=== PATIENT | female | born 1990 | race Caucasian/White ===

== ENCOUNTER 2017-08-21 17:33 | Observation (INO) | payer OTHER ==
[2017-08-21] MEDS: Lactated Ringers 1,000 ML IV SCH ×2 (18:45→22:47)
[2017-08-21] MEDS ORDERED: Ampicillin 2 GM in Sodium Chloride 0.9% 100 ML IV ONE (22:00)
--- NOTE | 2017-08-21 22:08 | PCM.LDHP ---
L&D History of Present Illness - General Date of Service: 08/21/17 Admit Problem/Dx: Admission Diagnosis/Problem Admission Diagnosis/Problem Source of Information: Patient History Limitations: Reports: No Limitations - History of Present Illness Introduction:: 27-year-old patient of Dr. Ahmet Mack's [facility] 09/19/17 at 35 weeks and 6 days (36 weeks 0 days tomorrow in 2 hours) action presented to labor and delivery complaining of contractions. Nonstress test is reactive group B strep was collected and assures negative patient is [place] every 3-5 minutes after 1000 mL of hydration over 3 hours including 500 mL for the first hour and 2 50/h thereafter. Will begin patient on group B strep prophylaxis as a precaution awaiting the return of the group B strep collection. Blood type O- positive antibody screen negative on 02/01/17 hemoglobin hematocrit 13.1 and 39% platelets 232,000, rubella titer immune, hepatitis B surface antigen nonreactive , HIV normal, on 06/20/17 hemoglobin 11.4 platelets 232,000, 1 hour OB glucose screen 102 mg/dL antibody screen negative Patient has continued to contract irregularly 3-5 minutes apart even with hydration. Will plan morphine 10 mg with Vistaril 50 mg IM and Procardia 10 mg by mouth. Will also treat with Augmentin until results of group B strep collection returned. Patient needs to stay overnight. Improves with: Reports: None Worsens with: Reports: None Associated Symptoms: Reports: N - Related Data Allergies/Adverse Reactions: Allergies Allergy/AdvReac Type Severity Reaction Status Date / Time Latex, Natural Rubber Allergy Anaphylactic Verified 03/14/16 20:55 Shock Home Medications: Home Meds Sertraline [Zoloft] 25 mg PO BEDTIME 11/24/13 [History] Albuterol [Proventil HFA] 6.7 gm INH Q6H PRN #1 inhaler 03/14/16 [Rx] Past Medical History Respiratory History: Reports: Asthma : 3 Para: 1 (1011) - Past Surgical History Female Surgical History: Reports: Other (See Below) Social & Family History - Tobacco Use Smoking Status *Q: Never Smoker Years of Tobacco use: 10 Packs/Tins Daily: 0.1 Second Hand Smoke Exposure: No - Alcohol Use Days Per Week of Alcohol Use: 0 - Recreational Drug Use Recreational Drug Use: No H&P Review of Systems - Review of Systems: Review Of Systems: See Below General: Reports: No Symptoms HEENT: Reports: No Symptoms Pulmonary: Reports: No Symptoms Cardiovascular: Reports: No Symptoms Gastrointestinal: Reports: No Symptoms Genitourinary: Reports: No Symptoms Musculoskeletal: Reports: No Symptoms Skin: Reports: No Symptoms Psychiatric: Reports: No Symptoms Neurological: Reports: No Symptoms Hematologic/Lymphatic: Reports: No Symptoms Immunologic: Reports: No Symptoms L&D Exam - Exam Exam: See Below - Vital Signs Vital Signs: Last Vital Signs Temp 97.8 F 08/21/17 17:47 Pulse 77 08/21/17 19:33 Resp 16 08/21/17 17:47 BP 100/59 L 08/21/17 17:47 Pulse Ox 100 08/21/17 17:49 Weight: 161 lb 14.4 oz - OB Specific Fundal Height In cm: 35 Contraction Duration (sec): 60 Contraction Frequency (min): 3-5 Contraction Intensity: Mild to Moderate Movement: Active Heart Tones: Present Heart Tones per Min: 126 Heart Rate (FHR) Variability: Moderate (6-25 bmp) (Nonstress test is reactive) Presentation: Vertex - Exam General: Alert, Oriented HEENT: Conjunctiva Clear, Mucosa Moist & [place], PERRLA Neck: Supple, Trachea Midline Lungs: Clear to Auscultation, Normal Respiratory Effort Cardiovascular: Regular Rate, Regular Rhythm GI/Abdominal Exam: Normal Bowel Sounds, Soft, Non-Tender, No Organomegaly, No Distention, No Abnormal Bruit, No Mass, Pelvis Stable Genitourinary: Normal external exam, Normal bimanual exam, Normal speculum exam Back Exam: Normal Inspection, Full Range of Motion Extremities: Normal Inspection, Normal Range of Motion, Non-Tender, No Pedal Edema, Normal Capillary Refill Skin: Warm, Dry, Intact Neurological: Reflexes Equal Bilateral Psychiatric: Alert, Normal Affect, Normal Mood - Patient Data Lab Results Last 24 hrs: Laboratory Results - last 24 hr 08/21/17 08/21/17 Range/Units 17:55 19:20 Urine Color Light yellow (Yellow) Urine Appearance Clear (Clear) Urine pH 7.0 (5.0-8.0) Ur Specific [place] 1.010 (1.005-1.030) Urine Protein Negative (Negative) Urine Glucose (UA) Negative (Negative) Urine Ketones Negative (Negative) Urine Occult Blood Negative (Negative) Urine Nitrite Negative (Negative) Urine Bilirubin Negative (Negative) Urine Urobilinogen 0.2 (0.2-1.0) Ur Leukocyte Esterase Negative (Negative) Urine RBC 0-5 (0-5) /hpf Urine WBC 0-5 (0-5) /hpf Ur Epithelial Cells 0-5 (0-5) /hpf Urine Bacteria Not seen (FEW) /hpf Urine Mucus Not seen (FEW) /hpf Membrane Rupture Negative - Problem List (1) 36 weeks gestation of SNOMED Code(s): 24248672 ICD Code: Z3A.36 - 36 WEEKS GESTATION OF Status: Acute Current Visit: Yes (2) Threatened labor, antepartum SNOMED Code(s): 834129217 ICD Code: O47.00 - FALSE LABOR BEFORE 37 COMPLETED WEEKS OF GEST, UNSP TRI Status: Acute Current Visit: Yes Problem List Initiated/Reviewed/Updated: No Orders Last 24hrs: Active Orders 24 hr Category Date Time Status CULTURE URINE [RM] Routine Lab 08/21/17 19:20 Received GROUP B STREP BY PCR [MOLEC] Stat Lab 08/21/17 17:48 Ordered Lactated Ringers [Ringers, Lactated] 1,000 ml Med 08/21/17 18:30 Active IV ASDIRECTED Medication Orders Lactated Ringer's (Ringers, Lactated) 1,000 mls @ 500 mls/hr IV ASDIRECTED [facility] Last Infusion: 08/21/17 19:49 Dose: 250 mls/hr Admin: 08/21/17 18:45 Dose: 500 mls/hr Assessment/Plan Comment:: Patient will be Overnight given IV hydration and medications to see if contractions will subside. Urinalysis negative Amnisure negative
[2017-08-21] MEDS ORDERED: Albuterol 6.7 GM Inhaler INH PRN (22:12)
[2017-08-21] MEDS ORDERED: Ondansetron 4 MG/2 ML SDV IV PRN (22:14)
[2017-08-21] MEDS ORDERED: Acetaminophen 325 MG Tab PO PRN (22:14)
[2017-08-21] MEDS ORDERED: hydrOXYzine HCl 25 MG/ML SDV IM ONE (22:14)
[2017-08-21] MEDS ORDERED: Morphine 10 MG/ML Syringe IM ONE (22:14)
[2017-08-21] MEDS ORDERED: Docusate Sodium 100 MG Cap PO PRN (22:14)
[2017-08-21] MEDS: NIFEdipine 10 MG Cap PO SCH (22:53)
[2017-08-22] MEDS: Ampicillin 1 GM in Sodium Chloride 0.9% 100 ML IV SCH ×2 (02:37→06:04)
[2017-08-22] MEDS: Lactated Ringers 1,000 ML IV SCH ×2 (04:05→04:06)
[2017-08-22 04:08] VITALS: BP 94/55
[2017-08-22] MEDS: NIFEdipine 10 MG Cap PO SCH (04:08)
--- NOTE | 2017-08-22 06:43 | PCM.DCSUM1 ---
Discharge Summary - Hospital Course Free Text/Narrative:: Contractions subsided patient will be dismissed to see Dr. Ahmet Mack this week possibly Monday or . HPI Initial Comments: Contractions subsided patient will be dismissed to see Dr. Ahmet Mack this week possibly Monday or . Brief History: Contractions subsided patient will be dismissed to see Dr. Ahmet Mack this week possibly Monday or . - Discharge Data Discharge Date: 08/22/17 Discharge Disposition: Home, Self-Care 01 Condition: Good - Discharge Diagnosis/Problem(s) (1) 36 weeks gestation of SNOMED Code(s): 00742782 ICD Code: Z3A.36 - 36 WEEKS GESTATION OF Status: Acute Current Visit: Yes (2) Threatened labor, antepartum SNOMED Code(s): 541985707 ICD Code: O47.00 - FALSE LABOR BEFORE 37 COMPLETED WEEKS OF GEST, UNSP TRI Status: Acute Current Visit: Yes - Patient Summary/Data Complications: None Consults: None Hospital Course: Uneventful - Patient Instructions Diet: Regular Diet as Tolerated Driving: May Drive Today Showering/Bathing: May Shower, No Tub Bathing/Swimming Notify Provider of: Fever, Increased Pain, Swelling and Redness, Drainage, Nausea and/or Vomiting Other/Special Instructions: Contractions subsided - Discharge Plan Home Medications: Home Meds Sertraline [Zoloft] 25 mg PO BEDTIME 11/24/13 [History] Albuterol [Proventil HFA] 6.7 gm INH Q6H PRN #1 inhaler 03/14/16 [Rx] Referrals: Ynes Encinas MD [Primary Care Provider] - (This week Monday if possible.) - Discharge Summary/Plan Comment DC Time >30 min.: No - Patient Data Vitals - Most Recent: Last Vital Signs Temp 97.8 F 08/21/17 17:47 Pulse 77 08/21/17 19:33 Resp 16 08/21/17 17:47 BP 94/55 L 08/22/17 04:08 Pulse Ox 100 08/21/17 17:49 Weight - Most Recent: 161 lb 14.4 oz Lab Results - Last 24 hrs: Laboratory Results - last 24 hr 08/21/17 08/21/17 08/21/17 Range/Units 17:55 19:20 21:30 WBC 14.41 H (3.98-10.04) K/mm3 RBC 4.07 (3.98-5.22) M/mm3 Hgb 11.2 (11.2-15.7) gm/L Hct 33.6 L (34.1-44.9) % MCV 82.6 (79.4-94.8) fl MCH 27.5 (25.6-32.2) pg MCHC 33.3 (32.2-35.5) g/dl RDW Std Deviation 38.6 (36.4-46.3) fL Plt Count 185 (182-369) K/mm3 MPV 11.2 (9.4-12.3) fl Neut % (Auto) 69.5 (34.0-71.1) % Lymph % (Auto) 19.8 (19.3-51.7) % [place] % (Auto) 8.3 (4.7-12.5) % Eos % (Auto) 1.3 (0.7-5.8) Baso % (Auto) 0.1 (0.1-1.2) % Neut # (Auto) 10.01 H (1.56-6.13) K/mm3 Lymph # (Auto) 2.86 (1.18-3.74) K/mm3 [place] # (Auto) 1.19 H (0.24-0.36) K/mm3 Eos # (Auto) 0.19 (0.04-0.36) K/mm3 Baso # (Auto) 0.02 (0.01-0.08) K/mm3 Manual Slide Review Normal smear Urine Color Light yellow (Yellow) Urine Appearance Clear (Clear) Urine pH 7.0 (5.0-8.0) Ur Specific [place] 1.010 (1.005-1.030) Urine Protein Negative (Negative) Urine Glucose (UA) Negative (Negative) Urine Ketones Negative (Negative) Urine Occult Blood Negative (Negative) Urine Nitrite Negative (Negative) Urine Bilirubin Negative (Negative) Urine Urobilinogen 0.2 (0.2-1.0) Ur Leukocyte Esterase Negative (Negative) Urine RBC 0-5 (0-5) /hpf Urine WBC 0-5 (0-5) /hpf Ur Epithelial Cells 0-5 (0-5) /hpf Urine Bacteria Not seen (FEW) /hpf Urine Mucus Not seen (FEW) /hpf Membrane Rupture Negative Blood Type Gel Antibody Screen 08/21/17 Range/Units 21:30 WBC (3.98-10.04) K/mm3 RBC (3.98-5.22) M/mm3 Hgb (11.2-15.7) gm/L Hct (34.1-44.9) % MCV (79.4-94.8) fl MCH (25.6-32.2) pg MCHC (32.2-35.5) g/dl RDW Std Deviation (36.4-46.3) fL Plt Count (182-369) K/mm3 MPV (9.4-12.3) fl Neut % (Auto) (34.0-71.1) % Lymph % (Auto) (19.3-51.7) % [place] % (Auto) (4.7-12.5) % Eos % (Auto) (0.7-5.8) Baso % (Auto) (0.1-1.2) % Neut # (Auto) (1.56-6.13) K/mm3 Lymph # (Auto) (1.18-3.74) K/mm3 [place] # (Auto) (0.24-0.36) K/mm3 Eos # (Auto) (0.04-0.36) K/mm3 Baso # (Auto) (0.01-0.08) K/mm3 Manual Slide Review Urine Color (Yellow) Urine Appearance (Clear) Urine pH (5.0-8.0) Ur Specific [place] (1.005-1.030) Urine Protein (Negative) Urine Glucose (UA) (Negative) Urine Ketones (Negative) Urine Occult Blood (Negative) Urine Nitrite (Negative) Urine Bilirubin (Negative) Urine Urobilinogen (0.2-1.0) Ur Leukocyte Esterase (Negative) Urine RBC (0-5) /hpf Urine WBC (0-5) /hpf Ur Epithelial Cells (0-5) /hpf Urine Bacteria (FEW) /hpf Urine Mucus (FEW) /hpf Membrane Rupture Blood Type O POSITIVE Gel Antibody Screen Negative Med Orders - Current: Current Medications Acetaminophen (Tylenol) 650 mg PO Q4H PRN PRN Reason: mild pain and fever Albuterol (Proventil Hfa) 0 gm INH Q6H PRN PRN Reason: Dyspnea Docusate Sodium (Colace) 100 mg PO Q12H PRN PRN Reason: Constipation Lactated Ringer's (Ringers, Lactated) 1,000 mls @ 125 mls/hr IV ASDIRECTED [facility] Last Admin: 08/22/17 04:06 Dose: 125 mls/hr Ampicillin Sodium 1 gm/ Sodium (Chloride) 100 mls @ 200 mls/hr IV Q4H [facility] Last Admin: 08/22/17 06:04 Dose: 200 mls/hr Nifedipine (Procardia) 10 mg PO Q6H [facility] Last Admin: 08/22/17 04:08 Dose: 10 mg Ondansetron HCl (Zofran) 4 mg IV Q4H PRN PRN Reason: Nausea/Vomiting Sertraline HCl (Zoloft) 25 mg PO BEDTIME [facility] Discontinued Medications Hydroxyzine HCl (Vistaril) 50 mg IM ONETIME ONE Stop: 08/21/17 22:15 Last Admin: 08/22/17 00:03 Dose: 50 mg Lactated Ringer's (Ringers, Lactated) 1,000 mls @ 500 mls/hr IV ASDIRECTED [facility] Last Infusion: 08/21/17 21:42 Dose: Infused Ampicillin Sodium 2 gm/ Sodium (Chloride) 100 mls @ 200 mls/hr IV ONETIME ONE Stop: 08/21/17 22:29 Last Admin: 08/21/17 22:51 Dose: 200 mls/hr Morphine Sulfate (Morphine) 10 mg IM ONETIME ONE Stop: 08/21/17 22:15 Last Admin: 08/22/17 00:05 Dose: 10 mg *Q Meaningful Use (DIS) - VTE *Q VTE Criteria *Q: - Stroke *Q Stroke Criteria *Q: - AMI *Q AMI Criteria *Q:
--- NOTE | 2017-08-22 06:58 | PCM.DCSUM1 ---
Discharge Summary - Hospital Course Brief History: Contractions subsided patient will be dismissed to see Dr. Ahmet Mack this week possibly Monday or . - Discharge Data Discharge Date: 08/22/17 Discharge Disposition: Home, Self-Care 01 Condition: Good - Discharge Diagnosis/Problem(s) (1) 36 weeks gestation of SNOMED Code(s): 04425982 ICD Code: Z3A.36 - 36 WEEKS GESTATION OF Status: Acute Current Visit: Yes (2) Threatened labor, antepartum SNOMED Code(s): 207294674 ICD Code: O47.00 - FALSE LABOR BEFORE 37 COMPLETED WEEKS OF GEST, UNSP TRI Status: Acute Current Visit: Yes - Patient Summary/Data Complications: None Consults: 9 Hospital Course: Uneventful - Patient Instructions Diet: Regular Diet as Tolerated Driving: Do Not Drive (Do not drive for 48 hours after Vistaril and morphine injection.) Showering/Bathing: May Shower, No Tub Bathing/Swimming Notify Provider of: Fever, Increased Pain, Swelling and Redness, Drainage, Nausea and/or Vomiting Other/Special Instructions: Contractions subsided - Discharge Plan Home Medications: Home Meds Sertraline [Zoloft] 25 mg PO BEDTIME 11/24/13 [History] Albuterol [Proventil HFA] 6.7 gm INH Q6H PRN #1 inhaler 03/14/16 [Rx] Referrals: Ynes Encinas MD [Primary Care Provider] - (This week Monday if possible.) - Discharge Summary/Plan Comment DC Time >30 min.: No - Patient Data Vitals - Most Recent: Last Vital Signs Temp 97.8 F 08/21/17 17:47 Pulse 77 08/21/17 19:33 Resp 16 08/21/17 17:47 BP 94/55 L 08/22/17 04:08 Pulse Ox 100 08/21/17 17:49 Weight - Most Recent: 161 lb 14.4 oz Lab Results - Last 24 hrs: Laboratory Results - last 24 hr 08/21/17 08/21/17 08/21/17 Range/Units 17:55 19:20 21:30 WBC 14.41 H (3.98-10.04) K/mm3 RBC 4.07 (3.98-5.22) M/mm3 Hgb 11.2 (11.2-15.7) gm/L Hct 33.6 L (34.1-44.9) % MCV 82.6 (79.4-94.8) fl MCH 27.5 (25.6-32.2) pg MCHC 33.3 (32.2-35.5) g/dl RDW Std Deviation 38.6 (36.4-46.3) fL Plt Count 185 (182-369) K/mm3 MPV 11.2 (9.4-12.3) fl Neut % (Auto) 69.5 (34.0-71.1) % Lymph % (Auto) 19.8 (19.3-51.7) % [place] % (Auto) 8.3 (4.7-12.5) % Eos % (Auto) 1.3 (0.7-5.8) Baso % (Auto) 0.1 (0.1-1.2) % Neut # (Auto) 10.01 H (1.56-6.13) K/mm3 Lymph # (Auto) 2.86 (1.18-3.74) K/mm3 [place] # (Auto) 1.19 H (0.24-0.36) K/mm3 Eos # (Auto) 0.19 (0.04-0.36) K/mm3 Baso # (Auto) 0.02 (0.01-0.08) K/mm3 Manual Slide Review Normal smear Urine Color Light yellow (Yellow) Urine Appearance Clear (Clear) Urine pH 7.0 (5.0-8.0) Ur Specific [place] 1.010 (1.005-1.030) Urine Protein Negative (Negative) Urine Glucose (UA) Negative (Negative) Urine Ketones Negative (Negative) Urine Occult Blood Negative (Negative) Urine Nitrite Negative (Negative) Urine Bilirubin Negative (Negative) Urine Urobilinogen 0.2 (0.2-1.0) Ur Leukocyte Esterase Negative (Negative) Urine RBC 0-5 (0-5) /hpf Urine WBC 0-5 (0-5) /hpf Ur Epithelial Cells 0-5 (0-5) /hpf Urine Bacteria Not seen (FEW) /hpf Urine Mucus Not seen (FEW) /hpf Membrane Rupture Negative Blood Type Gel Antibody Screen 08/21/17 Range/Units 21:30 WBC (3.98-10.04) K/mm3 RBC (3.98-5.22) M/mm3 Hgb (11.2-15.7) gm/L Hct (34.1-44.9) % MCV (79.4-94.8) fl MCH (25.6-32.2) pg MCHC (32.2-35.5) g/dl RDW Std Deviation (36.4-46.3) fL Plt Count (182-369) K/mm3 MPV (9.4-12.3) fl Neut % (Auto) (34.0-71.1) % Lymph % (Auto) (19.3-51.7) % [place] % (Auto) (4.7-12.5) % Eos % (Auto) (0.7-5.8) Baso % (Auto) (0.1-1.2) % Neut # (Auto) (1.56-6.13) K/mm3 Lymph # (Auto) (1.18-3.74) K/mm3 [place] # (Auto) (0.24-0.36) K/mm3 Eos # (Auto) (0.04-0.36) K/mm3 Baso # (Auto) (0.01-0.08) K/mm3 Manual Slide Review Urine Color (Yellow) Urine Appearance (Clear) Urine pH (5.0-8.0) Ur Specific [place] (1.005-1.030) Urine Protein (Negative) Urine Glucose (UA) (Negative) Urine Ketones (Negative) Urine Occult Blood (Negative) Urine Nitrite (Negative) Urine Bilirubin (Negative) Urine Urobilinogen (0.2-1.0) Ur Leukocyte Esterase (Negative) Urine RBC (0-5) /hpf Urine WBC (0-5) /hpf Ur Epithelial Cells (0-5) /hpf Urine Bacteria (FEW) /hpf Urine Mucus (FEW) /hpf Membrane Rupture Blood Type O POSITIVE Gel Antibody Screen Negative Med Orders - Current: Current Medications Acetaminophen (Tylenol) 650 mg PO Q4H PRN PRN Reason: mild pain and fever Albuterol (Proventil Hfa) 0 gm INH Q6H PRN PRN Reason: Dyspnea Docusate Sodium (Colace) 100 mg PO Q12H PRN PRN Reason: Constipation Lactated Ringer's (Ringers, Lactated) 1,000 mls @ 125 mls/hr IV ASDIRECTED [facility] Last Admin: 08/22/17 04:06 Dose: 125 mls/hr Ampicillin Sodium 1 gm/ Sodium (Chloride) 100 mls @ 200 mls/hr IV Q4H [facility] Last Admin: 08/22/17 06:04 Dose: 200 mls/hr Nifedipine (Procardia) 10 mg PO Q6H [facility] Last Admin: 08/22/17 04:08 Dose: 10 mg Ondansetron HCl (Zofran) 4 mg IV Q4H PRN PRN Reason: Nausea/Vomiting Sertraline HCl (Zoloft) 25 mg PO BEDTIME [facility] Discontinued Medications Hydroxyzine HCl (Vistaril) 50 mg IM ONETIME ONE Stop: 08/21/17 22:15 Last Admin: 08/22/17 00:03 Dose: 50 mg Lactated Ringer's (Ringers, Lactated) 1,000 mls @ 500 mls/hr IV ASDIRECTED [facility] Last Infusion: 08/21/17 21:42 Dose: Infused Ampicillin Sodium 2 gm/ Sodium (Chloride) 100 mls @ 200 mls/hr IV ONETIME ONE Stop: 08/21/17 22:29 Last Admin: 08/21/17 22:51 Dose: 200 mls/hr Morphine Sulfate (Morphine) 10 mg IM ONETIME ONE Stop: 08/21/17 22:15 Last Admin: 08/22/17 00:05 Dose: 10 mg *Q Meaningful Use (DIS) - VTE *Q VTE Criteria *Q: - Stroke *Q Stroke Criteria *Q: - AMI *Q AMI Criteria *Q:
[2017-08-22] MEDS ORDERED: Sertraline 25 MG Tab PO SCH (21:00)
== END 2017-08-22 08:07 | disposition home or self-care (01) ==
LOC: JD.OBCHECK 17:33 → JD.OB 17:47 → JD.OBCHECK 22:23 → JD.OB 22:30 → UNDOADMOB 22:30
PROVIDERS: ADMIT Obstetrics & Gynecology; ATTEND Obstetrics & Gynecology
DX: O47.00 False labor before 37 completed weeks of gestation, unspecified trimester (principal); O99.513 Diseases of the respiratory system complicating pregnancy, third trimester; J45.909 Unspecified asthma, uncomplicated; Z3A.36 36 weeks gestation of pregnancy; Z79.899 Other long term (current) drug therapy; Z91.040 Latex allergy status
CPT/HCPCS: 36415; 81001; 84112; 85025; 86850; 86900; 86901; 87086; 87653; A9270; J0290; J2270; J3410; J7030; J7120; 96360; 96361; 96365; 96366; 96372; G0378

== ENCOUNTER 2017-09-10 14:18 | Inpatient (IN) | payer OTHER ==
[2017-09-10] MEDS ORDERED: Sodium Chloride 0.9% 10 ML Syringe FLUSH PRN (16:20)
[2017-09-10] MEDS ORDERED: Ondansetron 4 MG/2 ML SDV IVPUSH PRN ×2 (16:20→19:06)
[2017-09-10] MEDS ORDERED: Oxytocin/Lactated Ringers 10 UNIT/1,000 ML BAG IV SCH ×2 (16:30)
[2017-09-10] MEDS: Lactated Ringers 1,000 ML IV SCH ×5 (16:45→23:07)
--- NOTE | 2017-09-10 16:57 | PCM.LDHP ---
L&D History of Present Illness - General Date of Service: 09/10/17 Admit Problem/Dx: Patient Status Order with Admit Dx/Problem 09/10/17 16:20 Patient Status [ADT] Routine Admission Diagnosis/Problem Admission Diagnosis/Problem Rupture of membranes with clear amniotic fluid Source of Information: Patient History Limitations: Reports: No Limitations - History of Present Illness Introduction:: Mere Gama is a 27-year-old at 38 weeks 5 days by 7 week ultrasound who presented with complaints of leaking of fluid with contractions and decreased movement. Ports that she had leaking of fluid that started around 7 AM this morning but thought that it was urinary incontinence. She continued to go about her normal activities and took a nap around noon and woke up and noted that she was still having leaking of clear fluid. She also reported that she had several contractions that were not regular or severely painful. She also reports that she had decreased movement and when she called in to labor and delivery was advised to come in for evaluation. On evaluation she was 2 cm dilated with a small amount of moisture on patient's underwear per nurse's report. Amnisure test was collected and returned as positive. Reports that she is having some low back pain. Timing/Duration: Reports: intermittent Location, : Reports: Lower back Severity: Mild Associated Symptoms: Reports: vaginal fluid, mild amount Present Illness Comments:: Mere Gama is a 27-year-old at 38 weeks 5 days by 7 week ultrasound. She has had routine care with Dr. Encinas. Her has been complicated by anxiety for which she uses Zoloft 50 mg nightly, possible exposure to Zika but tested negative during the , and tobacco use in . Her blood type is O+ with negative antibodies. Hematocrit on 02/01/2017 was 39 with platelets of 232. She is rubella immune. Hepatitis B, syphilis and HIV were all negative. Her 1 hour glucose test was 102. Her hemoglobin on 06/20/2017 was 11.4. She is GBS negative. She did have a Pap smear during the she reports is normal. - Related Data Allergies/Adverse Reactions: Allergies Allergy/AdvReac Type Severity Reaction Status Date / Time Latex, Natural Rubber Allergy Hives Verified 09/10/17 16:25 Home Medications: Home Meds Sertraline [Zoloft] 50 mg PO BEDTIME 11/24/13 [History] PNV95/Ferrous Fumarate/FA [ Vitamin Tablet] 1 each PO DAILY 09/02/17 [ History] Past Medical History Respiratory History: Reports: Asthma Other Respiratory History: pt states she only uses inhaler in summer/fall. 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 2 oz., female . Psychiatric History: Reports: Anxiety Hematologic History: Reports: None - Past Surgical History GI Surgical History: Reports: Appendectomy, Cholecystectomy, Colonoscopy, EGD, Other (See Below) Other GI Surgeries/Procedures: esophagogastroduodenoscopy, upper endoscopy with biopsy, colon polyp biopsy Female Surgical History: Reports: Other (See Below) Social & Family History - Tobacco Use Smoking Status *Q: Current Every Day Smoker Tobacco Use Within Last Twelve Months: Cigarettes Years of Tobacco use: 2 Packs/Tins Daily: 0 Second Hand Smoke Exposure: No - Caffeine Use Caffeine Use: Reports: None - Alcohol Use Days Per Week of Alcohol Use: 0 - Recreational Drug Use Recreational Drug Use: No H&P Review of Systems - Review of Systems: Review Of Systems: See Below General: Denies: Fever, Chills, Malaise HEENT: Denies: Sinus Congestion, Sore Throat, Visual Changes Pulmonary: Denies: Shortness of Breath, Wheezing, Cough Cardiovascular: Denies: Chest Pain, Palpitations, Edema Gastrointestinal: Denies: Abdominal Pain, Constipation, Diarrhea, Nausea, Vomiting Genitourinary: Denies: Dysuria, Frequency, Burning, Pain, Urgency Musculoskeletal: Reports: Back Pain Skin: Denies: Rash, Lesions Psychiatric: Reports: Anxiety. Denies: Depression Neurological: Denies: Headache Hematologic/Lymphatic: Denies: Easy Bleeding, Easy Bruising L&D Exam - Exam Exam: See Below - Vital Signs Vital Signs: Last Vital Signs Temp 36.6 C 09/10/17 14:53 Pulse 79 09/10/17 14:53 Resp 18 09/10/17 14:53 BP 108/68 09/10/17 14:53 Pulse Ox 100 09/10/17 14:53 Weight: 72.257 kg - OB Specific Contraction Frequency (min): Irregular Contraction Intensity: Mild to Moderate Movement: Active Heart Tones: Present Heart Tones per Min: 135 (Positive accelerations, no decelerations) Heart Rate (FHR) Variability: Moderate (6-25 bmp) Presentation: Vertex (Confirmed by ultrasound) Estimated Weight: 7 a half to 8 pounds by Alexandr's - Rios Score Rios Score Cervix Position: Midposition Rios Score Consistency: Soft Rios Score Effacement: >80% Rios Score Dilation: 3-4 cm Rios Score 's Station: -3 Rios Score Total: 8 - Exam General: Alert, Oriented, Cooperative HEENT: Conjunctiva Clear, EOMI Neck: Supple, Trachea Midline Lungs: Clear to Auscultation, Normal Respiratory Effort Cardiovascular: Regular Rate, Regular Rhythm GI/Abdominal Exam: Soft, Non-Tender, Other (Gravid). No: Guarding Genitourinary: Normal external exam. No: Vaginal bleeding Back Exam: Normal Inspection, Full Range of Motion Extremities: Normal Inspection, Non-Tender, No Pedal Edema Skin: Warm, Dry, Intact Psychiatric: Alert, Normal Affect, Normal Mood - Patient Data Lab Results Last 24 hrs: Laboratory Results - last 24 hr 09/10/17 09/10/17 Range/Units 14:45 16:33 WBC 11.41 H (3.98-10.04) K/mm3 RBC 4.15 (3.98-5.22) M/mm3 Hgb 11.4 (11.2-15.7) gm/L Hct 34.2 (34.1-44.9) % MCV 82.4 (79.4-94.8) fl MCH 27.5 (25.6-32.2) pg MCHC 33.3 (32.2-35.5) g/dl RDW Std Deviation 39.9 (36.4-46.3) fL Plt Count 189 (182-369) K/mm3 MPV 11.4 (9.4-12.3) fl Membrane Rupture Positive H Result Diagrams: 09/10/17 16:33 - Problem List (1) 38 weeks gestation of SNOMED Code(s): 74654180 ICD Code: Z3A.38 - 38 WEEKS GESTATION OF Status: Acute Current Visit: Yes (2) Spontaneous rupture of amniotic membranes SNOMED Code(s): 327701640 ICD Code: [id number] - Status: Acute Current Visit: Yes (3) Tobacco use affecting in third trimester, antepartum SNOMED Code(s): 631743285, 106317939 ICD Code: O99.333 - SMOKING (TOBACCO) COMPLICATING , THIRD TRIMESTER Status: Acute Current Visit: Yes (4) Anxiety during in third trimester, antepartum SNOMED Code(s): 08311618 ICD Code: O99.343 - OTH MENTAL DISORDERS COMPLICATING , THIRD TRIMESTER; F41.9 - ANXIETY DISORDER, UNSPECIFIED Status: Acute Current Visit : Yes Problem List Initiated/Reviewed/Updated: Yes Orders Last 24hrs: Active Orders 24 hr Category Date Time Status Patient Status [ADT] Routine ADT 09/10/17 16:20 Active Activity as Tolerated [RC] PFP Care 09/10/17 16:20 Active Communication Order [RC] ASDIRECTED Care 09/10/17 16:20 Active Heart Tones [RC] ASDIRECTED Care 09/10/17 16:21 Active Non Stress Test [RC] PER UNIT ROUTINE Care 09/10/17 14:53 Active Notify Provider Vital Signs [RC] PRN Care 09/10/17 16:21 Active Notify Provider [RC] PFP Care 09/10/17 16:20 Active Notify Provider [RC] PRN Care 09/10/17 16:20 Active Peripheral IV Care [RC] . DIRECTED Care 09/10/17 16:21 Active Urinary Catheter Assessment [RC] ASDIRECTED Care 09/10/17 16:20 Active Vital Signs [RC] PER UNIT ROUTINE Care 09/10/17 14:53 Active Vital Signs [RC] PER UNIT ROUTINE Care 09/10/17 16:20 Active Nothing Per Oral Diet [DIET] Diet 09/10/17 Dinner Active Lactated Ringers [Ringers, Lactated] 1,000 ml Med 09/10/17 16:30 Active IV ASDIRECTED Ondansetron [Zofran] Med 09/10/17 16:20 Active 4 mg IVPUSH Q4H PRN Oxytocin/Lactated Ringers [Pitocin in LR 10 Units/1,000 Med 09/10/17 16:30 Active ML] 10 unit in 1,000 ml IV .CONTINUOUS Oxytocin/Lactated Ringers [Pitocin in LR 10 Units/1,000 Med 09/10/17 16:30 Active ML] 10 unit in 1,000 ml IV TITRATE Sertraline [Zoloft] Med 09/10/17 21:00 Active 50 mg PO BEDTIME Sodium Chloride 0.9% [Saline Flush] Med 09/10/17 16:20 Active 10 ml FLUSH ASDIRECTED PRN Electronic Heart Tones Ext w TOCO [WOMSER] Oth 09/10/17 16:20 Ordered Routine Electronic Heart Tones Internal [WOMSER] Per Unit Oth 09/10/17 16:20 Ordered Routine Peripheral IV Insertion Adult [OM.PC] Routine Oth 09/10/17 16:20 Ordered Resuscitation Status Routine Resus Stat 09/10/17 14:53 Ordered Medication Orders Lactated Ringer's (Ringers, Lactated) 1,000 mls @ 100 mls/hr IV ASDIRECTED CORTES Last Admin: 09/10/17 16:45 Dose: 100 mls/hr Oxytocin/Lactated Ringer's (Pitocin In Lr 10 Units/1,000 Ml) 10 unit in 1,000 mls @ 100 mls/hr IV .CONTINUOUS CORTES Oxytocin/Lactated Ringer's (Pitocin In Lr 10 Units/1,000 Ml) 10 unit in 1,000 mls @ 12 mls/hr IV TITRATE CORTES; 2 MUNITS/MIN PRN Reason: Protocol Last Admin: 09/10/17 16:45 Dose: 2 munits/min, 12 mls/hr Ondansetron HCl (Zofran) 4 mg IVPUSH Q4H PRN PRN Reason: Nausea/Vomiting Sertraline HCl (Zoloft) 50 mg PO BEDTIME CORTES Sodium Chloride (Saline Flush) 10 ml FLUSH ASDIRECTED PRN PRN Reason: Keep Vein Open Assessment/Plan Comment:: 27-year-old at 38 weeks 5 days by 7 week ultrasound with spontaneous rupture membranes confirmed by positive Amnisure Refer to observation for labor Augmentation of labor with Pitocin per protocol due to the irregular contraction pattern Place IV and have Lactated Ringer's at 125 ml/hr total fluid rate with Pitocin Clear liquid diet with ice chips and sips of water Activity as tolerated May have epidural as desired Plans to breast-feed after delivery Anticipate vaginal delivery unless otherwise indicated Ike Metcalf M.D. 5:05 PM 09/10/2017
[2017-09-10] MEDS ORDERED: fentaNYL 100 MCG/2 ML SDV EPIDUR PRN (19:06)
[2017-09-10] MEDS ORDERED: ePHEDrine 50 MG/ML SDV IVPUSH PRN (19:06)
[2017-09-10] MEDS ORDERED: diphenhydrAMINE 50 MG/ML SDV IVPUSH PRN (19:06)
[2017-09-10] MEDS ORDERED: Bupivacaine/fentaNYL/NS 100 ML Bag EPIDUR SCH (19:15)
--- NOTE | 2017-09-10 19:19 | PCM.PREANE ---
Preanesthetic Assessment - Anesthesia/Transfusion/Family Hx Anesthesia History: Prior Anesthesia Without Reaction Family History of Anesthesia Reaction: No Transfusion History: No Prior Transfusion(s) - Review of Systems General: No Symptoms Pulmonary: No Symptoms Cardiovascular: No Symptoms Gastrointestinal: Other (Heart Burn with , tums as needed. ) Neurological: Other Other: Reports: Anxiety - Physical Assessment O2 Sat by Pulse Oximetry: 100 Respiratory Rate: 18 Vital Signs: Last Vital Signs Temp 36.6 C 09/10/17 14:53 Pulse 79 09/10/17 14:53 Resp 18 09/10/17 14:53 BP 108/68 09/10/17 14:53 Pulse Ox 100 09/10/17 14:53 Height: 1.63 m Weight: 72.257 kg ASA Class: 2 Mental Status: Alert & Oriented x3 Airway Class: Mallampati = 1 Dentition: Reports: Normal Dentition Thyro-Mental Finger Breadths: 2 Mouth Opening Finger Breadths: 3 ROM/Head Extension: Full Lungs: Clear to Auscultation, Normal Respiratory Effort Cardiovascular: Regular Rate, Regular Rhythm - Lab Values: Laboratory Last Values WBC 11.41 K/mm3 (3.98-10.04) H 09/10/17 16:33 RBC 4.15 M/mm3 (3.98-5.22) 09/10/17 16:33 Hgb 11.4 gm/L (11.2-15.7) 09/10/17 16:33 Hct 34.2 % (34.1-44.9) 09/10/17 16:33 MCV 82.4 fl (79.4-94.8) 09/10/17 16:33 MCH 27.5 pg (25.6-32.2) 09/10/17 16:33 MCHC 33.3 g/dl (32.2-35.5) 09/10/17 16:33 RDW Std Deviation 39.9 fL (36.4-46.3) 09/10/17 16:33 Plt Count 189 K/mm3 (182-369) 09/10/17 16:33 MPV 11.4 fl (9.4-12.3) 09/10/17 16:33 Membrane Rupture Positive H 09/10/17 14:45 - Allergies Allergies/Adverse Reactions: Allergies Allergy/AdvReac Type Severity Reaction Status Date / Time Latex, Natural Rubber Allergy Hives Verified 09/10/17 16:25 - Acknowledgements Anesthesia Type Planned: Epidural Pt an Appropriate Candidate for the Planned Anesthesia: Yes Alternatives and Risks of Anesthesia Discussed w Pt/Guardian: Yes Pt/Guardian Understands and Agrees with Anesthesia Plan: Yes PreAnesthesia Questionnaire Respiratory History: Reports: Asthma Other Respiratory History: pt states she only uses inhaler in summer/fall. 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 2 oz., female infant. Psychiatric History: Reports: Anxiety Hematologic History: Reports: None - Past Surgical History GI Surgical History: Reports: Appendectomy, Cholecystectomy, Colonoscopy, EGD, Other (See Below) Other GI Surgeries/Procedures: esophagogastroduodenoscopy, upper endoscopy with biopsy, colon polyp biopsy Female Surgical History: Reports: Other (See Below) - SUBSTANCE USE Smoking Status *Q: Current Every Day Smoker Tobacco Use Within Last Twelve Months: Cigarettes Second Hand Smoke Exposure: No Days Per Week of Alcohol Use: 0 Recreational Drug Use History: No - HOME MEDS Home Medications: Home Meds Sertraline [Zoloft] 50 mg PO BEDTIME 11/24/13 [History] PNV95/Ferrous Fumarate/FA [ Vitamin Tablet] 1 each PO DAILY 09/02/17 [ History] - CURRENT (IN HOUSE) MEDS Current Meds: Current Medications Diphenhydramine HCl (Benadryl) 25 mg IVPUSH Q6H PRN PRN Reason: Pruritis Ephedrine Sulfate (Ephedrine Sulfate) 5 mg IVPUSH ASDIRECTED PRN PRN Reason: Hypotension Fentanyl (Sublimaze) 100 mcg EPIDUR ONETIME PRN PRN Reason: Pain Fentanyl/Bupivacaine HCl (Fentanyl/Bupivacaine/Ns 2 Mcg-0.125% 100 Ml) 100 ml EPIDUR ASDIRECTED [facility] Lactated Ringer's (Ringers, Lactated) 1,000 mls @ 100 mls/hr IV ASDIRECTED CORTES Last Admin: 09/10/17 16:45 Dose: 100 mls/hr Oxytocin/Lactated Ringer's (Pitocin In Lr 10 Units/1,000 Ml) 10 unit in 1,000 mls @ 100 mls/hr IV .CONTINUOUS CORTES Oxytocin/Lactated Ringer's (Pitocin In Lr 10 Units/1,000 Ml) 10 unit in 1,000 mls @ 12 mls/hr IV TITRATE CORTES; 2 MUNITS/MIN PRN Reason: Protocol Last Titration: 09/10/17 18:45 Dose: 6 munits/min, 36 mls/hr Ondansetron HCl (Zofran) 4 mg IVPUSH Q4H PRN PRN Reason: Nausea/Vomiting Ondansetron HCl (Zofran) 4 mg IVPUSH ONETIME PRN PRN Reason: Nausea/Vomiting Sertraline HCl (Zoloft) 50 mg PO BEDTIME CORTES Sodium Chloride (Saline Flush) 10 ml FLUSH ASDIRECTED PRN PRN Reason: Keep Vein Open
[2017-09-10] MEDS ORDERED: Bupivacaine 0.25% 10 ML SDV ONE (22:22)
--- NOTE | 2017-09-11 01:51 | PCM.DEL ---
L & D Note - General Info Date of Service: 09/11/17 Mother's Due Date: 09/19/17 - Delivery Note Labor: Spontaneous, Augmented by ARM, Augmented by Oxytocin Delivery Outcome: Livebirth Delivery Method: Spontaneous Vaginal Delivery-Single Presentation: Occiput Anterior Nuchal Cord: None Prep: Povidone-Iodine (Betadine Anesthesia Type: Epidural Amniotic Fluid Description: Clear Episiotomy Type: None Laceration: 2nd Degree, Perineal Suture type: Vicryl Suture size: 4-0 Placenta: Intact, Spontaneous Cord: 3 Vessels Estimated Blood Loss: 300 Resuscitation Needed: No : Suctioned, Bulb Syringe, Stimulated, Warmed, [place] Used, Warmer Used Provider: Ynes Encinas Score 1 min: 7 Score 5 min: 9 Second Stage Interventions: Reports: Pushing, Pulls Own Legs Back Delivery Comments (Free Text/Narrative):: Stage I: Mere Gama was admitted for spontaneous rupture membranes. On admission her cervix was dilated to centimeters. She was GBS negative. She had a fore bag on admission that was artificially ruptured with return of clear fluid. She was started on Pitocin for augmentation. She was given an epidural for anesthesia. She progressed to complete and pushing. Stage II: On 09/11/2017 she had a normal vaginal delivery of a live female at 0113. Apgars of 7 & 9. Weight of 3700 g (8 lbs 3 oz). Length of 20 inches. There was no nuchal cord. was delivered in direct occiput anterior position. The cord was doubly clamped and cut by father of baby. was placed on mother's abdomen and then taken to warmer for further stimulation. Stage III: She had a spontaneous delivery of an intact placenta in Chaudhari presentation. Three vessel cord. She was given pitocin and fundal massage. She had a second-degree midline perineal laceration that was repaired with 3-0 Vicryl. She had a right labial first-degree laceration was repaired with 4-0 Vicryl. Mom and baby were stable to recovery. EBL of 200 mL. Ike Metcalf MD 1:58 AM 09/11/2017 - Patient Data Vitals - Most Recent: Last Vital Signs Temp 36.6 C 09/10/17 14:53 Pulse 79 09/10/17 14:53 Resp 18 09/10/17 19:19 BP 108/68 09/10/17 14:53 Pulse Ox 100 09/10/17 19:19 Weight - Most Recent: 72.257 kg Lab Results Last 24 Hours: Laboratory Results - last 24 hr 09/10/17 09/10/17 Range/Units 14:45 16:33 WBC 11.41 H (3.98-10.04) K/mm3 RBC 4.15 (3.98-5.22) M/mm3 Hgb 11.4 (11.2-15.7) gm/L Hct 34.2 (34.1-44.9) % MCV 82.4 (79.4-94.8) fl MCH 27.5 (25.6-32.2) pg MCHC 33.3 (32.2-35.5) g/dl RDW Std Deviation 39.9 (36.4-46.3) fL Plt Count 189 (182-369) K/mm3 MPV 11.4 (9.4-12.3) fl Membrane Rupture Positive H Med Orders - Current: Current Medications Diphenhydramine HCl (Benadryl) 25 mg IVPUSH Q6H PRN PRN Reason: Pruritis Ephedrine Sulfate (Ephedrine Sulfate) 5 mg IVPUSH ASDIRECTED PRN PRN Reason: Hypotension Fentanyl (Sublimaze) 100 mcg EPIDUR ONETIME PRN PRN Reason: Pain Last Admin: 09/10/17 20:13 Dose: 100 mcg Fentanyl/Bupivacaine HCl (Fentanyl/Bupivacaine/Ns 2 Mcg-0.125% 100 Ml) 100 ml EPIDUR ASDIRECTED CORTES Last Admin: 09/10/17 20:13 Dose: 100 ml Lactated Ringer's (Ringers, Lactated) 1,000 mls @ 100 mls/hr IV ASDIRECTED CORTES Last Admin: 09/10/17 23:07 Dose: 100 mls/hr Oxytocin/Lactated Ringer's (Pitocin In Lr 10 Units/1,000 Ml) 10 unit in 1,000 mls @ 100 mls/hr IV .CONTINUOUS CORTES Oxytocin/Lactated Ringer's (Pitocin In Lr 10 Units/1,000 Ml) 10 unit in 1,000 mls @ 12 mls/hr IV TITRATE CORTES; 2 MUNITS/MIN PRN Reason: Protocol Last Titration: 09/10/17 18:45 Dose: 6 munits/min, 36 mls/hr Ondansetron HCl (Zofran) 4 mg IVPUSH Q4H PRN PRN Reason: Nausea/Vomiting Ondansetron HCl (Zofran) 4 mg IVPUSH ONETIME PRN PRN Reason: Nausea/Vomiting Sertraline HCl (Zoloft) 50 mg PO BEDTIME CORTES Sodium Chloride (Saline Flush) 10 ml FLUSH ASDIRECTED PRN PRN Reason: Keep Vein Open - Problem List & Annotations (1) 38 weeks gestation of SNOMED Code(s): 74832817 Code(s): Z3A.38 - 38 WEEKS GESTATION OF Status: Acute Current Visit: Yes (2) Spontaneous rupture of amniotic membranes SNOMED Code(s): 148291085 Code(s): PQS3743 - Status: Acute Current Visit: Yes (3) Tobacco use affecting in third trimester, antepartum SNOMED Code(s): 909389409, 973696477 Code(s): O99.333 - SMOKING (TOBACCO) COMPLICATING , THIRD TRIMESTER Status: Acute Current Visit: Yes (4) Anxiety during in third trimester, antepartum SNOMED Code(s): 53923549 Code(s): O99.343 - OTH MENTAL DISORDERS COMPLICATING , THIRD TRIMESTER; F41.9 - ANXIETY DISORDER, UNSPECIFIED Status: Acute Current Visit : Yes (5) (normal spontaneous vaginal delivery) SNOMED Code(s): 50678577 Code(s): O80 - ENCOUNTER FOR FULL-TERM UNCOMPLICATED DELIVERY Status: Acute Current Visit: Yes (6) Second degree perineal laceration during delivery, delivered SNOMED Code(s): 8923967 Code(s): O70.1 - SECOND DEGREE PERINEAL LACERATION DURING DELIVERY Status: Acute Current Visit: Yes - Problem List Review Problem List Initiated/Reviewed/Updated: Yes - My Orders Last 24 Hours: My Active Orders 09/10/17 14:53 Non Stress Test [RC] PER UNIT ROUTINE Vital Signs [RC] PER UNIT ROUTINE Resuscitation Status Routine 09/10/17 16:20 Patient Status [ADT] Routine Activity as Tolerated [RC] PFP Communication Order [RC] ASDIRECTED Notify Provider [RC] PFP Notify Provider [RC] PRN Urinary Catheter Assessment [RC] ASDIRECTED Vital Signs [RC] PER UNIT ROUTINE Ondansetron [Zofran] 4 mg IVPUSH Q4H PRN Sodium Chloride 0.9% [Saline Flush] 10 ml FLUSH ASDIRECTED PRN Electronic Heart Tones Ext w TOCO [WOMSER] Routine Electronic Heart Tones Internal [WOMSER] Per Unit Routine Peripheral IV Insertion Adult [OM.PC] Routine 09/10/17 16:21 Heart Tones [RC] ASDIRECTED Notify Provider Vital Signs [RC] PRN Peripheral IV Care [RC] . DIRECTED 09/10/17 16:30 Lactated Ringers [Ringers, Lactated] 1,000 ml IV ASDIRECTED Oxytocin/Lactated Ringers [Pitocin in LR 10 Units/1,000 ML] 10 unit in 1,000 ml IV .CONTINUOUS Oxytocin/Lactated Ringers [Pitocin in LR 10 Units/1,000 ML] 10 unit in 1,000 ml IV TITRATE 09/10/17 21:00 Sertraline [Zoloft] 50 mg PO BEDTIME 09/10/17 Dinner Nothing Per Oral Diet [DIET] 09/11/17 01:46 Patient Status Manage Transfer [TRANSFER] Routine - Assessment Assessment:: 27-year-old status post of a live female on 09/11/2017 at 0113. - Plan Plan:: 27-year-old status post on a live female on 09/11/2017 at 0113. Admit to inpatient to the unit Continue Pitocin per protocol. Continue IV fluids until patient tolerating normal amount of liquids orally. Regular diet Assist with breast-feeding as needed. Continue to monitor lochia for appropriate amount of bleeding. Routine vitals Anticipate patient be discharged on day #1 Ike Metcalf M.D. 2:02 AM 09/11/2017
[2017-09-11] MEDS ORDERED: Lanolin 100% Cream 7 GM Tube TOP PRN (01:58)
[2017-09-11] MEDS ORDERED: Docusate Sodium 100 MG Cap PO PRN (01:58)
[2017-09-11] MEDS ORDERED: Magnesium Hydroxide 400 MG/5 ML Susp 30 ML Cup PO PRN (01:58)
[2017-09-11] MEDS ORDERED: Hydrocortisone Acetate 25 MG Supp RECTAL PRN (01:58)
[2017-09-11] MEDS ORDERED: Oxytocin/Lactated Ringers 10 UNIT/1,000 ML BAG IV SCH (02:00)
[2017-09-11] MEDS ORDERED: Lactated Ringers 1,000 ML IV SCH (02:00)
[2017-09-11] MEDS: Sertraline 50 MG Tab PO SCH ×3 (02:36→23:00)
[2017-09-11] MEDS: Ibuprofen 600 MG Tab PO PRN ×3 (02:36→19:19)
[2017-09-11] MEDS: Benzocaine/Menthol 20%-0.5% Spray 56 GM Canister TOP PRN (02:37)
[2017-09-11] MEDS: Witch Hazel Medicated Pads 100/Jar TOP PRN ×2 (02:38→12:49)
[2017-09-11] MEDS ORDERED: FLU Vacc QS 2017-18 (6mos UP)/PF 60 MCG/0.5 ML Syringe IM ONE (09:00)
[2017-09-11] MEDS ORDERED: Prenatal Multivitamin with Calcium/Folic Acid/Iron Tab PO SCH (09:00)
[2017-09-11] MEDS: Acetaminophen 325 MG Tab PO PRN (21:14)
[2017-09-12] MEDS: Ibuprofen 600 MG Tab PO PRN ×2 (04:20→10:32)
[2017-09-12] MEDS: Acetaminophen 325 MG Tab PO PRN (06:46)
--- NOTE | 2017-09-12 07:47 | PCM.SN ---
- Free Text/Narrative Note: Post Progress Note PPD # 1 Subjective: Doing well overall. Ambulating without difficulty. Lochia minimal. Voiding without difficulty. Tolerating regular diet without nausea or vomiting. Pain controlled with oral medications. Reports some minor perineal discomfort with urination secondary to perineal tear. Breast feeding with bottle supplementation with minimal difficulty. Objective: Vitals: Vital Signs - 24 hr 09/11/17 09/11/17 09/12/17 14:00 20:00 04:00 Temperature [ 36.5 C 36.2 C 36.1 C Temporal] Pulse, 63 62 54 L Peripheral [ Pulse Oximetry] Respiratory 18 16 16 Rate Blood Pressure 107/73 116/83 109/81 [Upper Arm] O2 Sat by Pulse 100 97 96 Oximetry Physical Exam General: Alert and oriented, no acute distress Lungs: Clear to auscultation bilaterally Heart: Regular rate and rhythm Abdomen: Soft, minimal appropriate tenderness, non-distended, fundus midline, nontender, and below the umbilicus Extremities: Trace bilateral lower extremity edema to knees ASSESSMENT: 27-year-old female G 3 P 2011 s/p normal vaginal delivery PPD #1, complicated by anxiety with medication use, tobacco use in , possible Enedelia exposure was negative testing in PLAN: Doing well Breast feeding with bottle supplementation with minimal difficulty. Assist as needed Lochia minimal. Continue to monitor for appropriate lochia. Continue routine care Anticipate discharge home today Ike Metcalf MD 7:47 AM 09/12/2017
--- NOTE | 2017-09-12 07:56 | PCM.DCSUM1 ---
Discharge Summary - Hospital Course Free Text/Narrative:: Stage I: Mere Gama was admitted for spontaneous rupture membranes. On admission her cervix was dilated to centimeters. She was GBS negative. She had a fore bag on admission that was artificially ruptured with return of clear fluid. She was started on Pitocin for augmentation. She was given an epidural for anesthesia. She progressed to complete and pushing. Stage II: On 09/11/2017 she had a normal vaginal delivery of a live female infant at 0113. Apgars of 7 & 9. Weight of 3700 g (8 lbs 3 oz). Length of 20 inches. There was no nuchal cord. was delivered in direct occiput anterior position. The cord was doubly clamped and cut by father of baby. Infant was placed on mother's abdomen and then taken to warmer for further stimulation. Stage III: She had a spontaneous delivery of an intact placenta in [place]hari presentation. Three vessel cord. She was given pitocin and fundal massage. She had a second-degree midline perineal laceration that was repaired with 3-0 Vicryl. She had a right labial first-degree laceration was repaired with 4-0 Vicryl. Mom and baby were stable to recovery. EBL of 200 mL. HPI Initial Comments: Stage I: Mere Gama was admitted for spontaneous rupture membranes. On admission her cervix was dilated to centimeters. She was GBS negative. She had a fore bag on admission that was artificially ruptured with return of clear fluid. She was started on Pitocin for augmentation. She was given an epidural for anesthesia. She progressed to complete and pushing. Stage II: On 09/11/2017 she had a normal vaginal delivery of a live female infant at 0113. Apgars of 7 & 9. Weight of 3700 g (8 lbs 3 oz). Length of 20 inches. There was no nuchal cord. Infant was delivered in direct occiput anterior position. The cord was doubly clamped and cut by father of baby. Infant was placed on mother's abdomen and then taken to warmer for further stimulation. Stage III: She had a spontaneous delivery of an intact placenta in [place]hari presentation. Three vessel cord. She was given pitocin and fundal massage. She had a second-degree midline perineal laceration that was repaired with 3-0 Vicryl. She had a right labial first-degree laceration was repaired with 4-0 Vicryl. Mom and baby were stable to recovery. EBL of 200 mL. Brief History: Stage I: Mere Gama was admitted for spontaneous rupture membranes. On admission her cervix was dilated to centimeters. She was GBS negative. She had a fore bag on admission that was artificially ruptured with return of clear fluid. She was started on Pitocin for augmentation. She was given an epidural for anesthesia. She progressed to complete and pushing. Stage II: On 09/11/2017 she had a normal vaginal delivery of a live female at 0113. Apgars of 7 & 9. Weight of 3700 g (8 lbs 3 oz). Length of 20 inches. There was no nuchal cord. was delivered in direct occiput anterior position. The cord was doubly clamped and cut by father of baby. Infant was placed on mother's abdomen and then taken to warmer for further stimulation. Stage III: She had a spontaneous delivery of an intact placenta in [place]hari presentation. Three vessel cord. She was given pitocin and fundal massage. She had a second-degree midline perineal laceration that was repaired with 3-0 Vicryl. She had a right labial first-degree laceration was repaired with 4-0 Vicryl. Mom and baby were stable to recovery. EBL of 200 mL. - Discharge Data Discharge Date: 09/12/17 Discharge Disposition: Home, Self-Care 01 Condition: Good - Discharge Diagnosis/Problem(s) (1) 38 weeks gestation of SNOMED Code(s): 10400088 ICD Code: Z3A.38 - 38 WEEKS GESTATION OF Status: Acute Current Visit: Yes (2) Spontaneous rupture of amniotic membranes SNOMED Code(s): 526062328 ICD Code: ODS2608 - Status: Acute Current Visit: Yes (3) Tobacco use affecting in third trimester, antepartum SNOMED Code(s): 727161322, 920974684 ICD Code: O99.333 - SMOKING (TOBACCO) COMPLICATING , THIRD TRIMESTER Status: Acute Current Visit: Yes (4) Anxiety during in third trimester, antepartum SNOMED Code(s): 97666544 ICD Code: O99.343 - OTH MENTAL DISORDERS COMPLICATING , THIRD TRIMESTER; F41.9 - ANXIETY DISORDER, UNSPECIFIED Status: Acute Current Visit : Yes (5) (normal spontaneous vaginal delivery) SNOMED Code(s): 89511256 ICD Code: O80 - ENCOUNTER FOR FULL-TERM UNCOMPLICATED DELIVERY Status: Acute Current Visit: Yes (6) Second degree perineal laceration during delivery, delivered SNOMED Code(s): 5087400 ICD Code: O70.1 - SECOND DEGREE PERINEAL LACERATION DURING DELIVERY Status : Acute Current Visit: Yes - Patient Summary/Data Complications: None Consults: None Hospital Course: Mere Gama was admitted on 09/10/2017 following spontaneous rupture membranes at home. On admission her cervix was dilated to 2 cm. She is GBS negative. She had a fore bag on admission that was artificially ruptured with return of clear fluid. She received Pitocin for augmentation. She had an epidural for anesthesia. On 09/11/2017 showed a normal vaginal delivery of a live female at 0113. Apgars of 7 and 9. Weight of 3700 g (8 lbs. 3 oz.) . She had a first-degree right labial tear that was repaired with 4-0 Vicryl and a second-degree midline perineal laceration that was repaired with 3-0 Vicryl. She had an EBL of 200 mL. Her course was overall uncomplicated. She was meeting milestones in the morning of day #0 including ambulation without difficulty, tolerating regular diet without nausea or vomiting, voiding without difficulty and minimal lochia. She was breast-feeding with minimal difficulty but giving some bottle supplementation due to is continuing to be hungry after breast-feeding. On day #1 she continued to meet the above milestones and desired to be discharged home. She will follow up with Dr. Encinas in 6 weeks or earlier as needed for her visit. - Patient Instructions Diet: Regular Diet as Tolerated Activity: As Tolerated Activity, Other: Nothing in the vagina for 6 weeks Driving: May Drive Today Showering/Bathing: May Shower, No Tub Bathing/Swimming (For 1-2 weeks) Notify Provider of: Fever, Increased Pain, Swelling and Redness, Drainage, Nausea and/or Vomiting - Discharge Plan Home Medications: Home Meds Sertraline [Zoloft] 50 mg PO BEDTIME 11/24/13 [History] PNV95/Ferrous Fumarate/FA [ Vitamin Tablet] 1 each PO DAILY 09/02/17 [ History] Acetaminophen [Tylenol] 650 mg PO Q6H PRN tablet 09/12/17 [Rx] Benzocaine/Menthol [Dermoplast Pain Relief [place]] 1 spray TOP ASDIRECTED PRN canister 09/12/17 [Rx] Docusate Sodium [Colace] 100 mg PO BID PRN cap 09/12/17 [Rx] Hydrocortisone Acetate [Anucort-HC] 25 mg RECTAL BID PRN supp 09/12/17 [Rx] Ibuprofen [IJD: Ibuprofen] 600 mg PO Q6H PRN tablet 09/12/17 [Rx] Lanolin [Lansinoh HPA] 1 applic TOP ASDIRECTED PRN tube 09/12/17 [Rx] Patient Handouts: How to Take a Sitz Bath, Disposable Sitz Bath, Vaginal Laceration, Home Care Instructions for Mom, Vaginal Delivery, Care After, Pelvic Rest, Care of a Perineal Tear, Care After Vaginal Delivery Referrals: Ynes Encinas MD [Primary Care Provider] - (Follow-up in 6 weeks or earlier as needed for visit.) - Discharge Summary/Plan Comment DC Time >30 min.: No - Patient Data Vitals - Most Recent: Last Vital Signs Temp 36.1 C 09/12/17 04:00 Pulse 54 L 09/12/17 04:00 Resp 16 09/12/17 04:00 BP 109/81 09/12/17 04:00 Pulse Ox 96 09/12/17 04:00 Weight - Most Recent: 72.257 kg I&O - Last 24 hours: Intake & Output 09/11/17 09/12/17 09/12/17 22:59 06:59 14:59 Intake Total 320 Balance 320 Med Orders - Current: Current Medications Acetaminophen (Tylenol) 650 mg PO Q6H PRN PRN Reason: mild pain or fever Last Admin: 09/12/17 06:46 Dose: 650 mg Benzocaine/Menthol (Dermoplast Pain Relief [place]) 0 gm TOP ASDIRECTED PRN PRN Reason: Perineal Comfort Measure Last Admin: 09/11/17 02:37 Dose: 1 canister Docusate Sodium (Colace) 100 mg PO BID PRN PRN Reason: Constipation Emollient Ointment (Lansinoh Hpa) 0 gm TOP ASDIRECTED PRN PRN Reason: Sore Nipples Hydrocortisone Acetate (Anucort-Hc) 25 mg RECTAL BID PRN PRN Reason: Hemorrhoid pain Lactated Ringer's (Ringers, Lactated) 1,000 mls @ 125 mls/hr IV ASDIRECTED [facility] Oxytocin/Lactated Ringer's (Pitocin In Lr 10 Units/1,000 Ml) 10 unit in 1,000 mls @ 100 mls/hr IV TITRATE CORTES PRN Reason: Protocol Ibuprofen (Motrin) 600 mg PO Q6H PRN PRN Reason: Mild pain or fever Last Admin: 09/12/17 04:20 Dose: 600 mg Magnesium Hydroxide (Milk Of Magnesia) 30 ml PO BEDTIME PRN PRN Reason: Constipation Prenat Multivit/Temple/Iron/Folic Ac ( Plus Iron) 1 each PO DAILY CORTES Sertraline HCl (Zoloft) 50 mg PO BEDTIME CORTES Last Admin: 09/11/17 23:00 Dose: Not Given Petrona Swanson (Tucks) 1 pad TOP ASDIRECTED PRN PRN Reason: Hemorrhoid pain Last Admin: 09/11/17 12:49 Dose: 1 tub Discontinued Medications Bupivacaine HCl (Sensorcaine-Mpf 0.25%) 10 ml .ROUTE .STK-MED ONE Stop: 09/10/17 22:23 Diphenhydramine HCl (Benadryl) 25 mg IVPUSH Q6H PRN PRN Reason: Pruritis Ephedrine Sulfate (Ephedrine Sulfate) 5 mg IVPUSH ASDIRECTED PRN PRN Reason: Hypotension Fentanyl (Sublimaze) 100 mcg EPIDUR ONETIME PRN PRN Reason: Pain Last Admin: 09/10/17 20:13 Dose: 100 mcg Fentanyl/Bupivacaine HCl (Fentanyl/Bupivacaine/Ns 2 Mcg-0.125% 100 Ml) 100 ml EPIDUR ASDIRECTED [facility] Last Admin: 09/10/17 20:13 Dose: 100 ml Lactated Ringer's (Ringers, Lactated) 1,000 mls @ 100 mls/hr IV ASDIRECTED [facility] Last Admin: 09/10/17 23:07 Dose: 100 mls/hr Oxytocin/Lactated Ringer's (Pitocin In Lr 10 Units/1,000 Ml) 10 unit in 1,000 mls @ 100 mls/hr IV .CONTINUOUS CORTES Oxytocin/Lactated Ringer's (Pitocin In Lr 10 Units/1,000 Ml) 10 unit in 1,000 mls @ 12 mls/hr IV TITRATE CORTES; 2 MUNITS/MIN PRN Reason: Protocol Last Titration: 09/11/17 01:15 Dose: 500 mls/hr Influenza Virus Vaccine (Flulaval Quad [id number]) 60 mcg IM .ONCE ONE Stop: 09/11/17 09:01 Ondansetron HCl (Zofran) 4 mg IVPUSH Q4H PRN PRN Reason: Nausea/Vomiting Ondansetron HCl (Zofran) 4 mg IVPUSH ONETIME PRN PRN Reason: Nausea/Vomiting Sodium Chloride (Saline Flush) 10 ml FLUSH ASDIRECTED PRN PRN Reason: Keep Vein Open *Q Meaningful Use (DIS) - VTE *Q VTE Criteria *Q: - Stroke *Q Stroke Criteria *Q: - AMI *Q AMI Criteria *Q:
--- NOTE | 2017-09-12 08:47 | PCM48HPAN ---
Post Anesthesia Note - EVALUATION WITHIN 48HRS OF ANESTHETIC Vital Signs in Normal Range: Yes Patient Participated in Evaluation: Yes Respiratory Function Stable: Yes Airway Patent: Yes Cardiovascular Function Stable: Yes Hydration Status Stable: Yes Pain Control Satisfactory: Yes Nausea and Vomiting Control Satisfactory: Yes Mental Status Recovered: Yes
[2017-09-12] MEDS: Benzocaine/Menthol 20%-0.5% Spray 56 GM Canister TOP PRN (09:10)
[2017-09-12 09:18] VITALS: BP 109/71
== END 2017-09-12 10:56 | disposition home or self-care (01) | DRG 775 ==
LOC: JD.OB 14:18 → JD.OBCHECK 14:18 → JD.OB 16:20 → OBSVTOIN 09-11 01:13 → JD.OB 09-11 10:53
PROVIDERS: ADMIT Obstetrics & Gynecology; ATTEND Obstetrics & Gynecology
PROC: 00HU33Z Insertion of Infusion Device into Spinal Canal, Percutaneous Approach (ICD-10-PCS; 2017-09-10)
PROC: 3E0R3BZ Introduction of Anesthetic Agent into Spinal Canal, Percutaneous Approach (ICD-10-PCS; 2017-09-10)
PROC: 10E0XZZ Delivery of Products of Conception, External Approach (ICD-10-PCS; principal; 2017-09-11)
PROC: 0KQM0ZZ Repair Perineum Muscle, Open Approach (ICD-10-PCS; 2017-09-11)
DX: O42.02 Full-term premature rupture of membranes, onset of labor within 24 hours of rupture (principal); O99.334 Smoking (tobacco) complicating childbirth; F17.210 Nicotine dependence, cigarettes, uncomplicated; F41.9 Anxiety disorder, unspecified; O70.1 Second degree perineal laceration during delivery; Z3A.38 38 weeks gestation of pregnancy; Z37.0 Single live birth; Z91.040 Latex allergy status; Z79.899 Other long term (current) drug therapy
CPT/HCPCS: 01967; 36415; 51702; 59300; 59409; 84112; 85027; 90471; 90686; A9270-GY; J2590; J3010; J7120

== ENCOUNTER 2019-10-31 19:13 | Emergency (ER) | payer OTHER ==
[2019-10-31 19:31] VITALS: BP 105/70; PULSE 76
[2019-10-31] MEDS ORDERED: Lidocaine 1% 10 ML MDV INJECT ONE (19:34)
--- NOTE | 2019-10-31 19:36 | EDM.PDOC ---
ED HPI GENERAL MEDICAL PROBLEM - General Chief Complaint: Laceration Stated Complaint: COUGH SORE THROAT FINGER LACERATION Time Seen by Provider: 10/31/19 19:25 Source of Information: Reports: Patient History Limitations: Reports: No Limitations - History of Present Illness INITIAL COMMENTS - FREE TEXT/NARRATIVE: The patient presents with a left thumb laceration. She was cutting up some pineapple and cut the tip of her left thumb. She is right handed and her tetanus is up to date. Onset: Sudden Duration: Minutes: Location: Reports: Upper Extremity, Left (thumb) Quality: Reports: Sharp Severity: Mild Improves with: Reports: None Worsens with: Reports: None Associated Symptoms: Reports: No Other Symptoms Left Finger-Thumb Pain Score (Numeric/FACES): 6 - Related Data Allergies Allergy/AdvReac Type Severity Reaction Status Date / Time Latex, Natural Rubber Allergy Hives Verified 10/31/19 19:26 Home Meds: Home Meds FLUoxetine HCl [Fluoxetine] 10 mg PO DAILY 03/03/19 [History] Past Medical History - Past Health History Medical/Surgical History: Denies Medical/Surgical History Respiratory History: Reports: Asthma Other Respiratory History: pt states she only uses inhaler in summer/fall. 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 2 oz., female infant. Psychiatric History: Reports: Anxiety Hematologic History: Reports: None - Past Surgical History HEENT Surgical History: Reports: Oral Surgery GI Surgical History: Reports: Appendectomy, Cholecystectomy, Colonoscopy, EGD Female Surgical History: Reports: Other (See Below) Social & Family History - Family History Family Medical History: Noncontributory - Tobacco Use Smoking Status *Q: Never Smoker Second Hand Smoke Exposure: No - Caffeine Use Caffeine Use: Reports: Coffee, Soda - Recreational Drug Use Recreational Drug Use: No - Living Situation & Occupation Living situation: Reports: , with Spouse, with Family (2 kids) Occupation: Employed ([employer]) ED ROS GENERAL - Review of Systems Review Of Systems: See Below Constitutional: Reports: No Symptoms HEENT: Reports: No Symptoms Respiratory: Reports: No Symptoms Cardiovascular: Reports: No Symptoms Endocrine: Reports: No Symptoms GI/Abdominal: Reports: No Symptoms : Reports: No Symptoms Musculoskeletal: Reports: Other (Left thumb laceration) ED EXAM, SKIN/RASH Exam: See Below Exam Limited By: No Limitations General Appearance: Alert, No Apparent Distress Ears: Normal External Exam Nose: Normal Inspection Head: Atraumatic, Normocephalic Neck: Normal Inspection Respiratory/Chest: No Respiratory Distress Extremities: Other (1.5cm laceration to the left thumb) ED SKIN PROCEDURES - Laceration/Wound Repair Left Digit - 1st (Thumb) Appearance: Superficial, Linear Distal NVT: Neuro & Vascular Intact, No Tendon Injury Anesthetic Type: Local Local Anesthesia - Lidocaine (Xylocaine): 1% Plain Skin Prep: Saline Exploration/Debridement/Repair: Wound Explored, In a Bloodless Field, Explored to Base Closed with: Sutures Lac/Wound length In cm: 1.5 Suture Size: 5-0 # of Sutures: 4 Suture Type: Nylon, Interrupted, Simple Tetanus Status Addressed: Yes Complications: No Course - Vital Signs Last Recorded V/S: Last Vital Signs Temp 97.8 F 10/31/19 19:26 Pulse 76 10/31/19 19:26 Resp 2 L 10/31/19 19:26 BP 105/70 10/31/19 19:26 Pulse Ox 100 10/31/19 19:26 - Orders/Labs/Meds Meds: Medications Discontinued Medications Generic Name Dose Route Start Last Admin Trade Name Nimesh PRN Reason Stop Dose Admin Lidocaine HCl 10 ml 10/31/19 19:34 10/31/19 20:05 Xylocaine 1% INJECT 10/31/19 19:35 10 ml ONETIME ONE Administration Departure - Departure Time of Disposition: 20:30 Disposition: Home, Self-Care 01 Condition: Good Clinical Impression: Laceration of left thumb Qualifiers: Encounter type: initial encounter Damage to nail status: without damage Foreign body presence: without foreign body Qualified Code(s): S61.012A - Laceration without foreign body of left thumb without damage to nail, initial encounter - Discharge Information *PRESCRIPTION DRUG MONITORING PROGRAM REVIEWED*: Not Applicable *COPY OF PRESCRIPTION DRUG MONITORING REPORT IN PATIENT TEJINDER: Not Applicable Referrals: Biju Cee MD [Primary Care Provider] - Forms: ED Department Discharge Additional Instructions: Soak your thumb in warm soapy water 2 times per day and apply antibiotic ointment after. Have the sutures remove in 1 week. Look for any signs of infection such as redness, swelling, pain or drainage. If you see any of these signs please return or see your doctor. You may need oral antibiotics. Sepsis Event Note - Evaluation Sepsis Screening Result: No Definite Risk - Focused Exam Vital Signs: Vital Signs Temp Pulse Resp BP Pulse Ox 10/31/19 19:26 97.8 F 76 2 L 105/70 100 Date Exam was Performed: 10/31/19 Time Exam was Performed: 20:25
== END 2019-10-31 20:30 | disposition home or self-care (01) ==
LOC: JD.ED 19:13
DX: S61.012A Laceration without foreign body of left thumb without damage to nail, initial encounter (principal); J45.909 Unspecified asthma, uncomplicated; K21.9 Gastro-esophageal reflux disease without esophagitis; Z79.899 Other long term (current) drug therapy; W26.9XXA Contact with unspecified sharp object(s), initial encounter
CPT/HCPCS: 12001; 99282; J2001

== ENCOUNTER 2020-02-27 03:23 | Inpatient (IN) | payer OTHER ==
[2020-02-27] MEDS ORDERED: Ondansetron 4 MG/2 ML SDV IVPUSH PRN (19:07)
[2020-02-27] MEDS ORDERED: Sodium Chloride 0.9% 10 ML Syringe FLUSH PRN (19:07)
[2020-02-27] MEDS ORDERED: Nalbuphine 10 MG/ML Syringe IVPUSH PRN (19:07)
[2020-02-27] MEDS ORDERED: Oxytocin/Lactated Ringers 10 UNIT/1,000 ML BAG IV SCH (19:15)
--- NOTE | 2020-02-27 20:41 | PCM.LDHP ---
<WindyDunia K - Last Filed: 02/27/20 20:57> L&D History of Present Illness - General Date of Service: 02/27/20 Admit Problem/Dx: Patient Status Order with Admit Dx/Problem 02/27/20 19:08 Patient Status [ADT] Routine Admission Diagnosis/Problem Admission Diagnosis/Problem Source of Information: Patient History Limitations: Reports: No Limitations - History of Present Illness Introduction:: Mere Gama is a 29-year-old white female at 39 weeks and 0 days gestational age who presents to labor and delivery for an elective induction of labor. Her ALISSON is 03/05/2020. Present Illness Comments:: Mere Gama is a 29-year-old white female at 39 weeks and 0 days gestational age who presents to labor and delivery for an elective induction of labor. Her ALISSON is 03/05/2020. She is allergic to latex. Past medical history of anxiety, for which she takes 20 mg fluoxetine daily (please see below). Past medical history of GERD during , controlled with diet. She is a current smoker (please see below). The procedure of elective labor induction, as well as risks and benefits, were discussed with the patient and her and they agreed to proceed. She would like to have an epidural, and agrees to a blood transfusion if necessary. OBGYN History. 29-year-old female with an ALISSON of 12/05/2019. Her LMP was 05/30/2019. This was supported by an initial OB ultrasound performed on 08/22/2019. She experienced menarche at age 14. Her cycles occur monthly, are regular, and last 28 days. She was not using control at the time of conception. Past OB History: 1. Spontaneous in December of 2013 at six weeks gestational age. 2. Female infant born on 05/18/2017 at 39 weeks and 2 days gestational age. weight of 7 lbs 2 oz. Born at [facility]. Named "Yue Campos." She had an epidural. 3. Female born on 09/11/2019 at 38 weeks gestational age, 10 hours of labor. weight of 8 lbs 1 oz. Born at [facility]. Named "Xenia." She had an epidural. Course: Her first visit was on 08/19/2019 at 11 weeks and 4 days gestational age. Over the course of her , she gained 28 pounds, from 126 pounds to 158 pounds. Her vital signs remained stable throughout and fundal height growth was appropriate. She was seen regularly throughout this . She has smoked one pack per day for the last ten years. She states she attempted to quit smoking in her first trimester and was successful until four months ago when she started smoking again. She has smoked 1-5 cigarettes per day for the last four months. She also tried to taper off of her fluoxetine 20 mg during at 36 weeks but was unable to do this due to increased anxiety. She received TDAP vaccination on 01/15/2020. She is Group B strep negative. She reports occasional Oakley-Arnett contractions since mid- January. She also reports intermittent dark bloody discharge for the last two weeks. She plans to have an epidural. She plans to breastfeed. First Trimester Labs: Blood Type: O positive Antibody Screen: Negative Hemoglobin: 12.8 g/dl Hematocrit: 38.2% Platelets: 236 10*3/uL Rubella: Immune RPR: Nonreactive Hepatitis B surface antigen: Negative HIV: Negative Chlamydia/Gonorrhea: Negative Second Trimester Labs: Hemoglobin: 11.7 g/dl Hematocrit: 36.1% Platelets: 200 10*3/uL Diabetes screenin Group B Strep negative on 02/05/2020. - Related Data Allergies/Adverse Reactions: Allergies Allergy/AdvReac Type Severity Reaction Status Date / Time Latex, Natural Rubber Allergy Hives Verified 02/27/20 21:17 Home Medications: Home Meds FLUoxetine HCl [Fluoxetine] 20 mg PO DAILY 03/03/19 [History] Vits #93/Iron Fum/FA [ Formula Tablet] 1 tab PO DAILY 02/16/20 [History] Past Medical History HEENT History: Reports: None Cardiovascular History: Reports: None Respiratory History: Reports: None Other Respiratory History: pt states she only uses inhaler in summer/fall. seasonal Gastrointestinal History: Reports: Colon Polyp, Gastritis, GERD Genitourinary History: Reports: None HAND CULTIVATOR History: Reports: , Spontaneous Other OB/BYN History: at 39 weeks with first child, weight 7 lbs. 2 oz., female . Psychiatric History: Reports: Anxiety Endocrine/Metabolic History: Reports: None Hematologic History: Reports: None Oncologic (Cancer) History: Reports: None - Past Surgical History HEENT Surgical History: Reports: Oral Surgery GI Surgical History: Reports: Appendectomy, Cholecystectomy, Colonoscopy, EGD Female Surgical History: Reports: Other (See Below) Social & Family History - Family History Cardiac: Reports: Hypertension (Mother and sister.) Endocrine/Metabolic: Reports: Hypothyroidism (Mother) - Tobacco Use Smoking Status *Q: Current Every Day Smoker Tobacco Use Within Last Twelve Months: Cigarettes (1-5 cigarettes per day during .) Years of Tobacco use: 10 (1 ppd prior to . 1-5 cigarettes per day during .) - Caffeine Use Caffeine Use: Reports: Coffee, Soda - Living Situation & Occupation Living situation: Reports: , with Spouse, with Family (2 kids) Occupation: Employed ([employer]) H&P Review of Systems - Review of Systems: Review Of Systems: See Below General: Reports: No Symptoms HEENT: Reports: No Symptoms Pulmonary: Reports: No Symptoms Cardiovascular: Reports: No Symptoms Gastrointestinal: Reports: No Symptoms Genitourinary: Reports: No Symptoms Musculoskeletal: Reports: No Symptoms Skin: Reports: No Symptoms Psychiatric: Reports: Anxiety (Chronic, taking 20 mg fluoxetine. Admits she is somewhat anxious today.) Neurological: Reports: No Symptoms Hematologic/Lymphatic: Reports: No Symptoms Immunologic: Reports: No Symptoms L&D Exam - Exam Exam: See Below - Rios Score Rios Score Consistency: Soft Rios Score Effacement: >80% - Exam General: Alert, Oriented, Cooperative HEENT: Conjunctiva Clear, EOMI, Hearing Intact, Mucosa Moist & [place], Normal Nasal Septum, Posterior Pharynx Clear, Pupils Equal, Pupils Reactive Neck: Supple, Trachea Midline, Full Range of Motion, Other (Thyroid nonenlarged, without nodules.) Lungs: Clear to Auscultation, Normal Respiratory Effort Cardiovascular: Regular Rate, Regular Rhythm, Normal S1, Normal S2 GI/Abdominal Exam: Normal Bowel Sounds, No Organomegaly Rectal Exam: Deferred Genitourinary: Normal external exam Back Exam: Normal Inspection, Other (No CVA tenderness.) Extremities: Normal Inspection, Normal Range of Motion, Non-Tender, No Pedal Edema, Normal Capillary Refill Skin: Warm, Dry, Intact Neurological: Cranial Nerves Intact, Reflexes Equal Bilateral DTR: 2+: Bicep (L), Bicep (R), Patella (L), Patella (R), Achilles (L), Achilles (R) Psychiatric: Alert, Normal Affect, Normal Mood - Patient Data Lab Results Last 24 hrs: Laboratory Results - last 24 hr 02/27/20 Range/Units 19:30 WBC 11.47 H (3.98-10.04) K/mm3 RBC 4.03 (3.98-5.22) M/mm3 Hgb 10.9 L (11.2-15.7) gm/dl Hct 33.2 L (34.1-44.9) % MCV 82.4 D (79.4-94.8) fl MCH 27.0 (25.6-32.2) pg MCHC 32.8 (32.2-35.5) g/dl RDW Std Deviation 38.8 (36.4-46.3) fL Plt Count 190 (182-369) K/mm3 MPV 12.1 (9.4-12.3) fl Neut % (Auto) 67.5 (34.0-71.1) % Lymph % (Auto) 22.8 (19.3-51.7) % [place] % (Auto) 8.0 (4.7-12.5) % Eos % (Auto) 1.2 (0.7-5.8) Baso % (Auto) 0.2 (0.1-1.2) % Neut # (Auto) 7.73 H (1.56-6.13) K/mm3 Lymph # (Auto) 2.62 (1.18-3.74) K/mm3 [place] # (Auto) 0.92 H (0.24-0.36) K/mm3 Eos # (Auto) 0.14 (0.04-0.36) K/mm3 Baso # (Auto) 0.02 (0.01-0.08) K/mm3 Result Diagrams: 02/27/20 19:30 Orders Last 24hrs: Active Orders 24 hr Category Date Time Status Patient Status [ADT] Routine ADT 02/27/20 19:08 Active Activity as Tolerated [RC] PFP Care 02/27/20 19:08 Active Communication Order [RC] ASDIRECTED Care 02/27/20 19:08 Active Heart Tones [RC] ASDIRECTED Care 02/27/20 19:08 Active Non Stress Test [RC] PER UNIT ROUTINE Care 02/27/20 19:08 Active Notify Provider [RC] PFP Care 02/27/20 19:08 Active Notify Provider [RC] PRN Care 02/27/20 19:08 Active Peripheral IV Care [RC] . DIRECTED Care 02/27/20 19:08 Active Pump Management, Intrathecal [RC] ASDIRECTED Care 02/27/20 19:08 Active Vital Signs [RC] PER UNIT ROUTINE Care 02/27/20 19:08 Active Regular Diet [DIET] Diet 02/27/20 Breakfast Active BLOOD BANK HOLD SPECIMEN [BBK] Stat Lab 02/27/20 19:07 Ordered RAPID PLASMA REAGIN,RPR [CHEM] Routine Lab 02/27/20 19:30 Received Lactated Ringers [Ringers, Lactated] 1,000 ml Med 02/27/20 19:15 Active IV ASDIRECTED Nalbuphine [Nubain] Med 02/27/20 19:07 Active 10 mg IVPUSH Q2H PRN Ondansetron [Zofran] Med 02/27/20 19:07 Active 4 mg IVPUSH Q4H PRN Oxytocin/Lactated Ringers [Pitocin in LR 10 Units/1,000 Med 02/27/20 19:15 Active ML] 10 unit in 1,000 ml IV TITRATE Sodium Chloride 0.9% [Saline Flush] Med 02/27/20 19:07 Active 10 ml FLUSH ASDIRECTED PRN Electronic Heart Tones Ext w TOCO [WOMSER] Oth 02/27/20 19:08 Ordered Routine Electronic Heart Tones Internal [WOMSER] Per Unit Oth 02/27/20 19:08 Ordered Routine Peripheral IV Insertion Adult [OM.PC] Routine Oth 02/27/20 19:08 Ordered Resuscitation Status Routine Resus Stat 02/27/20 19:07 Ordered Medication Orders Oxytocin/Lactated Ringer's (Pitocin In Lr 10 Units/1,000 Ml) 10 unit in 1,000 mls @ 12 mls/hr IV TITRATE CORTES; Protocol Lactated Ringer's (Ringers, Lactated) 1,000 mls @ 100 mls/hr IV ASDIRECTED CORTES Nalbuphine HCl (Nubain) 10 mg IVPUSH Q2H PRN PRN Reason: Pain Ondansetron HCl (Zofran) 4 mg IVPUSH Q4H PRN PRN Reason: Nausea/Vomiting Sodium Chloride (Saline Flush) 10 ml FLUSH ASDIRECTED PRN PRN Reason: Keep Vein Open Assessment/Plan Comment:: 29-year-old white female here for induction of labor at 39 weeks and 0 days gestational age. At this time, we plan to rupture membranes and proceed with labor, which she and her are very agreeable to. We did discuss with her the option of starting Pitocin if she is not progressing with labor after a few hours. Group B Strep negative. TDAP given on 01/15/20. Plans to have an epidural. Plans to breastfeed. Desires a vaginal delivery. Routine labor care. Vitals: Take routinely Condition: Stable Activity: As tolerated - ambulation, bathroom privileges, etc. Diet: Regular Allergies: Latex IV Fluids: Lactated Ringers CBC per protocol. <Biju Cee F - Last Filed: 02/28/20 05:58> L&D History of Present Illness - General Admit Problem/Dx: Admission Diagnosis/Problem Admission Diagnosis/Problem H&P Review of Systems - Review of Systems: Review Of Systems: See Below L&D Exam - Exam Exam: See Below - Vital Signs Vital Signs: Last Vital Signs Temp 36.7 C 02/27/20 19:08 Pulse 67 02/28/20 04:01 Resp 16 02/27/20 19:08 BP 97/63 02/28/20 04:01 Pulse Ox 100 02/28/20 01:01 - Patient Data Lab Results Last 24 hrs: Laboratory Results - last 24 hr 02/27/20 02/27/20 Range/Units 19:30 22:13 WBC 11.47 H (3.98-10.04) K/mm3 RBC 4.03 (3.98-5.22) M/mm3 Hgb 10.9 L (11.2-15.7) gm/dl Hct 33.2 L (34.1-44.9) % MCV 82.4 D (79.4-94.8) fl MCH 27.0 (25.6-32.2) pg MCHC 32.8 (32.2-35.5) g/dl RDW Std Deviation 38.8 (36.4-46.3) fL Plt Count 190 (182-369) K/mm3 MPV 12.1 (9.4-12.3) fl Neut % (Auto) 67.5 (34.0-71.1) % Lymph % (Auto) 22.8 (19.3-51.7) % [place] % (Auto) 8.0 (4.7-12.5) % Eos % (Auto) 1.2 (0.7-5.8) Baso % (Auto) 0.2 (0.1-1.2) % Neut # (Auto) 7.73 H (1.56-6.13) K/mm3 Lymph # (Auto) 2.62 (1.18-3.74) K/mm3 [place] # (Auto) 0.92 H (0.24-0.36) K/mm3 Eos # (Auto) 0.14 (0.04-0.36) K/mm3 Baso # (Auto) 0.02 (0.01-0.08) K/mm3 COVID-19 (ESTEBAN) Negative (NEGATIVE) Result Diagrams: 02/27/20 19:30 Problem List Initiated/Reviewed/Updated: Yes Orders Last 24hrs: Active Orders 24 hr Category Date Time Status Activity as Tolerated [RC] PER UNIT ROUTINE Care 02/28/20 04:21 Active Vital Signs [RC] ASDIRECTED Care 02/28/20 04:21 Active Regular Diet [DIET] Diet 02/28/20 Breakfast Active RAPID PLASMA REAGIN,RPR [CHEM] Routine Lab 02/27/20 19:30 Received Acetaminophen [Tylenol] Med 02/28/20 04:21 Active 650 mg PO Q4H PRN Benzocaine/Menthol [Dermoplast Pain Relief Wallace] Med 02/28/20 04:21 Active See Dose Instructions TOP ASDIRECTED PRN Docusate Sodium [Colace] Med 02/28/20 04:21 Active 100 mg PO BID PRN FLUoxetine [PROzac] Med 02/28/20 09:00 Active 20 mg PO DAILY Ibuprofen [Motrin] Med 02/28/20 04:21 Active 600 mg PO Q4H PRN Vit with Ca/FA/Iron [ Plus Iron] Med 02/28/20 09:00 Active 1 each PO DAILY witch Kerry [Tucks] Med 02/28/20 04:21 Active 1 pad TOP ASDIRECTED PRN Assess Lochia [WOMSER] Per Unit Routine Oth 02/28/20 04:21 Ordered Assess Uterine Involution [WOMSER] Per Unit Routine Oth 02/28/20 04:21 Ordered Breast Pump [WOMSER] Per Unit Routine Oth 02/28/20 04:21 Ordered Heat Therapy [OM.PC] PRN Oth 02/28/20 04:21 Ordered Heat Therapy [OM.PC] PRN Oth 02/29/20 04:21 Ordered Ice Therapy [OM.PC] Per Unit Routine Oth 02/28/20 04:21 Ordered Medication Administration Instruction [OM.PC] Routine Ot 02/28/20 04:21 Ordered Perineal Care [OM.PC] Per Unit Routine Oth 02/28/20 04:21 Ordered Sitz Bath [OM.PC] Per Unit Routine Oth 02/28/20 04:21 Ordered Resuscitation Status Routine Resus Stat 02/27/20 19:07 Ordered Medication Orders Acetaminophen (Tylenol) 650 mg PO Q4H PRN PRN Reason: mild pain or fever Benzocaine/Menthol (Dermoplast Pain Relief Wallace) 0 gm TOP ASDIRECTED PRN PRN Reason: Perineal Comfort Measure Docusate Sodium (Colace) 100 mg PO BID PRN PRN Reason: Constipation Fluoxetine HCl (Prozac) 20 mg PO DAILY CORTES Ibuprofen (Motrin) 600 mg PO Q4H PRN PRN Reason: Mild pain or fever Prenat Multivit/[place]/Iron/Folic Ac ( Plus Iron) 1 each PO DAILY CORTES Petrona Swanson ([place]) 1 pad TOP ASDIRECTED PRN PRN Reason: Perineal Comfort Measure
[2020-02-27] MEDS: Lactated Ringers 1,000 ML IV SCH (22:11)
[2020-02-28] MEDS ORDERED: Bupivacaine 0.25% 10 ML SDV ONE
[2020-02-28] MEDS ORDERED: diphenhydrAMINE 50 MG/ML SDV IVPUSH PRN (00:22)
[2020-02-28] MEDS ORDERED: fentaNYL 100 MCG/2 ML SDV EPIDUR PRN (00:22)
[2020-02-28] MEDS ORDERED: Bupivacaine/fentaNYL/NS 100 ML Bag EPIDUR PRN (00:22)
[2020-02-28] MEDS ORDERED: ePHEDrine 50 MG/ML SDV IVPUSH PRN (00:22)
[2020-02-28] MEDS: Lactated Ringers 1,000 ML IV SCH ×2 (01:04→01:30)
--- NOTE | 2020-02-28 01:12 | PCM.PREANE ---
Preanesthetic Assessment - Procedure Proposed Procedure: Epidural - Anesthesia/Transfusion/Family Hx Anesthesia History: Prior Anesthesia Without Reaction Family History of Anesthesia Reaction: No Transfusion History: No Prior Transfusion(s) - Review of Systems General: Fatigue Pulmonary: No Symptoms Cardiovascular: No Symptoms Gastrointestinal: Abdominal Pain (labor) Neurological: No Symptoms Other: Reports: None - Physical Assessment Vital Signs: Last Vital Signs Temp 36.7 C 02/27/20 19:08 Pulse 86 02/27/20 19:08 Resp 16 02/27/20 19:08 BP 110/69 02/27/20 19:08 Pulse Ox 93 L 02/27/20 19:08 Height: 17.78 m Weight: 70.76 kg ASA Class: 2 Mental Status: Alert & Oriented x3 Airway Class: Mallampati = 1 Dentition: Reports: Normal Dentition Thyro-Mental Finger Breadths: 3 Mouth Opening Finger Breadths: 3 ROM/Head Extension: Full Lungs: Clear to Auscultation, Normal Respiratory Effort Cardiovascular: Regular Rate, Regular Rhythm - Lab Values: Laboratory Last Values WBC 11.47 K/mm3 (3.98-10.04) H 02/27/20 19:30 RBC 4.03 M/mm3 (3.98-5.22) 02/27/20 19:30 Hgb 10.9 gm/dl (11.2-15.7) L 02/27/20 19:30 Hct 33.2 % (34.1-44.9) L 02/27/20 19:30 MCV 82.4 fl (79.4-94.8) D 02/27/20 19:30 MCH 27.0 pg (25.6-32.2) 02/27/20 19:30 MCHC 32.8 g/dl (32.2-35.5) 02/27/20 19:30 RDW Std Deviation 38.8 fL (36.4-46.3) 02/27/20 19:30 Plt Count 190 K/mm3 (182-369) 02/27/20 19:30 MPV 12.1 fl (9.4-12.3) 02/27/20 19:30 Neut % (Auto) 67.5 % (34.0-71.1) 02/27/20 19:30 Lymph % (Auto) 22.8 % (19.3-51.7) 07/09/20 19:30 [place] % (Auto) 8.0 % (4.7-12.5) 02/27/20 19:30 Eos % (Auto) 1.2 (0.7-5.8) 02/27/20 19:30 Baso % (Auto) 0.2 % (0.1-1.2) 02/27/20 19:30 Neut # (Auto) 7.73 K/mm3 (1.56-6.13) H 02/27/20 19:30 Lymph # (Auto) 2.62 K/mm3 (1.18-3.74) 02/27/20 19:30 [place] # (Auto) 0.92 K/mm3 (0.24-0.36) H 02/27/20 19:30 Eos # (Auto) 0.14 K/mm3 (0.04-0.36) 02/27/20 19:30 Baso # (Auto) 0.02 K/mm3 (0.01-0.08) 02/27/20 19:30 COVID-19 (ESTEBAN) Negative (NEGATIVE) 02/27/20 22:13 - Allergies Allergies/Adverse Reactions: Allergies Allergy/AdvReac Type Severity Reaction Status Date / Time Latex, Natural Rubber Allergy Hives Verified 02/27/20 21:17 - Anesthesia Plan Pre-Op Medication Ordered: None - Acknowledgements Anesthesia Type Planned: Epidural Pt an Appropriate Candidate for the Planned Anesthesia: Yes Alternatives and Risks of Anesthesia Discussed w Pt/Guardian: Yes Pt/Guardian Understands and Agrees with Anesthesia Plan: Yes PreAnesthesia Questionnaire - Past Health History Medical/Surgical History: Denies Medical/Surgical History HEENT History: Reports: None Cardiovascular History: Reports: None Respiratory History: Reports: None Other Respiratory History: pt states she only uses inhaler in summer/fall. 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 2 oz., female . Psychiatric History: Reports: Anxiety Endocrine/Metabolic History: Reports: None Hematologic History: Reports: None Oncologic (Cancer) History: Reports: None - Past Surgical History HEENT Surgical History: Reports: Oral Surgery GI Surgical History: Reports: Appendectomy, Cholecystectomy, Colonoscopy, EGD Female Surgical History: Reports: Other (See Below) - SUBSTANCE USE Smoking Status *Q: Current Every Day Smoker Tobacco Use Within Last Twelve Months: Cigarettes (1-5 cigarettes per day during .) Second Hand Smoke Exposure: No Recreational Drug Use History: No - HOME MEDS Home Medications: Home Meds FLUoxetine HCl [Fluoxetine] 20 mg PO DAILY 03/03/19 [History] Vits #93/Iron Fum/FA [ Formula Tablet] 1 tab PO DAILY 02/16/20 [History] - CURRENT (IN HOUSE) MEDS Current Meds: Current Medications Diphenhydramine HCl (Benadryl) 25 mg IVPUSH Q6H PRN PRN Reason: pruritis Ephedrine Sulfate (Ephedrine Sulfate) 5 mg IVPUSH ASDIRECTED PRN PRN Reason: Hypotension Fentanyl (Sublimaze) 100 mcg EPIDUR Q3H PRN PRN Reason: Pain Last Admin: 02/28/20 00:59 Dose: 100 mcg Documented by: Fentanyl/Bupivacaine HCl (Fentanyl/Bupivacaine/Ns 2 Mcg-0.125% 100 Ml) 100 ml EPIDUR ASDIRECTED PRN PRN Reason: Pain Last Admin: 02/28/20 00:59 Dose: 100 ml Documented by: Oxytocin/Lactated Ringer's (Pitocin In Lr 10 Units/1,000 Ml) 10 unit in 1,000 m ls @ 12 mls/hr IV TITRATE CORTES; Protocol Last Admin: 02/27/20 22:12 Dose: 2 munits/min, 12 mls/hr Documented by: Lactated Ringer's (Ringers, Lactated) 1,000 mls @ 100 mls/hr IV ASDIRECTED CORTES Last Admin: 02/28/20 01:04 Dose: 999 mls/hr Documented by: Nalbuphine HCl (Nubain) 10 mg IVPUSH Q2H PRN PRN Reason: Pain Ondansetron HCl (Zofran) 4 mg IVPUSH Q4H PRN PRN Reason: Nausea/Vomiting Sodium Chloride (Saline Flush) 10 ml FLUSH ASDIRECTED PRN PRN Reason: Keep Vein Open
--- NOTE | 2020-02-28 03:54 | PCM.SN.2 ---
- Free Text/Narrative Note: Mere Gama is a 29-year-old now white female at 39 weeks and 0 days gestational age who presents to labor and delivery for an elective induction of labor. Her ALISSON is 03/05/2020. She is admitted for induction of labor with artificial rupture membranes and possible Pitocin augmentation. She had an epidural placed for labor analgesia. She progressed steadily to complete cervical dilation by approximately 0245 hrs. On 02/28/2020. She delivered a viable, cleary, 7 pound 5.5 ounce (3330 g) female infant with Apgars of 8 and 9, a length of 20 inches in a right occiput anterior position over an intact perineum at 0323 hrs. on 02/28/2020. The baby was placed on mom's abdomen and umbilical cord was allowed to pulsate for 2-3 minutes. Pitocin was increased to 500 mL per hour per protocol to facilitate increase in uterine tone and decrease likelihood of bleeding. After 2-3 minutes umbilical cord was clamped 2 and cut by the baby's father Jens. The umbilical cord had 3 blood vessels. Umbilical cord blood was obtained. The placenta delivered at 0328 hrs. in a Allan presentation, appeared intact and complete and was discarded per patient desire. The perineal and vaginal area was evaluated and found to be intact. No suturing was required. The patient plans to breast-feed. The estimated blood loss was approximately 100 mL. Condition: Good.
[2020-02-28] MEDS ORDERED: Benzocaine/Menthol 20%-0.5% Spray 56 GM Canister TOP PRN (04:21)
[2020-02-28] MEDS ORDERED: Acetaminophen 325 MG Tab PO PRN (04:21)
[2020-02-28] MEDS ORDERED: Docusate Sodium 100 MG Cap PO PRN (04:21)
[2020-02-28] MEDS ORDERED: Witch Hazel Medicated Pads 40/Jar TOP PRN (04:21)
[2020-02-28] MEDS: Ibuprofen 600 MG Tab PO PRN ×3 (08:25→19:39)
[2020-02-28] MEDS: Prenatal Multivitamin with Calcium/Folic Acid/Iron Tab PO SCH (08:26)
[2020-02-28] MEDS ORDERED: FLUoxetine 20 MG Cap PO SCH ×2 (09:00→21:00)
--- NOTE | 2020-02-28 19:42 | PCM48HPAN ---
Post Anesthesia Note - EVALUATION WITHIN 48HRS OF ANESTHETIC Vital Signs in Normal Range: Yes Patient Participated in Evaluation: Yes Respiratory Function Stable: Yes Airway Patent: Yes Cardiovascular Function Stable: Yes Hydration Status Stable: Yes Pain Control Satisfactory: Yes Nausea and Vomiting Control Satisfactory: Yes Mental Status Recovered: Yes Vital Signs: Last Vital Signs Temp 35.8 C L 02/28/20 19:21 Pulse 57 L 02/28/20 19:21 Resp 16 02/28/20 19:21 BP 116/71 02/28/20 19:21 Pulse Ox 100 02/28/20 19:21
--- NOTE | 2020-02-29 06:45 | PCM.PNPP ---
- General Info Date of Service: 02/29/20 Functional Status: Reports: Pain Controlled, Tolerating Diet, Ambulating, Urinating - Review of Systems General: Reports: No Symptoms Pulmonary: Reports: No Symptoms Cardiovascular: Reports: No Symptoms Gastrointestinal: Reports: No Symptoms Genitourinary: Reports: No Symptoms Musculoskeletal: Reports: No Symptoms Neurological: Reports: No Symptoms - General Info Date of Service: 02/29/20 - Patient Data Vital Signs - Most Recent: Last Vital Signs Temp 36.0 C L 02/29/20 04:28 Pulse 61 02/29/20 04:28 Resp 14 02/29/20 04:28 BP 107/70 02/29/20 04:28 Pulse Ox 96 02/29/20 04:28 Weight - Most Recent: 70.76 kg I&O - Last 24 Hours: Intake & Output 02/28/20 02/28/20 02/29/20 14:59 22:59 06:59 Intake Total 300 Balance 300 Lab Results - Last 24 Hours: Laboratory Results - last 24 hr 02/27/20 Range/Units 19:30 RPR Non-reactive (NONREACTIVE) Med Orders - Current: Current Medications Acetaminophen (Tylenol) 650 mg PO Q4H PRN PRN Reason: mild pain or fever Benzocaine/Menthol (Dermoplast Pain Relief [place]) 0 gm TOP ASDIRECTED PRN PRN Reason: Perineal Comfort Measure Last Admin: 02/28/20 06:00 Dose: 1 can Documented by: Docusate Sodium (Colace) 100 mg PO BID PRN PRN Reason: Constipation Fluoxetine HCl (Prozac) 20 mg PO BEDTIME [facility] Last Admin: 02/28/20 20:53 Dose: Not Given Documented by: Ibuprofen (Motrin) 600 mg PO Q4H PRN PRN Reason: Mild pain or fever Last Admin: 02/28/20 19:39 Dose: 600 mg Documented by: Prenat Multivit/[place]/Iron/Folic Ac ( Plus Iron) 1 each PO DAILY [facility] Last Admin: 02/28/20 08:26 Dose: 1 each Documented by: Petrona Swanson ([place]) 1 pad TOP ASDIRECTED PRN PRN Reason: Perineal Comfort Measure Last Admin: 02/28/20 06:00 Dose: 1 tub Documented by: Discontinued Medications Bupivacaine HCl (Sensorcaine-Mpf 0.25%) 10 ml .ROUTE .[employer] ONE Stop: 02/28/20 00:01 Diphenhydramine HCl (Benadryl) 25 mg IVPUSH Q6H PRN PRN Reason: pruritis Ephedrine Sulfate (Ephedrine Sulfate) 5 mg IVPUSH ASDIRECTED PRN PRN Reason: Hypotension Fentanyl (Sublimaze) 100 mcg EPIDUR Q3H PRN PRN Reason: Pain Last Admin: 02/28/20 00:59 Dose: 100 mcg Documented by: Fentanyl/Bupivacaine HCl (Fentanyl/Bupivacaine/Ns 2 Mcg-0.125% 100 Ml) 100 ml EPIDUR ASDIRECTED PRN PRN Reason: Pain Last Admin: 02/28/20 00:59 Dose: 100 ml Documented by: Fluoxetine HCl (Prozac) 20 mg PO DAILY [facility] Last Admin: 02/28/20 08:26 Dose: Not Given Documented by: Oxytocin/Lactated Ringer's (Pitocin In Lr 10 Units/1,000 Ml) 10 unit in 1,000 mls @ 12 mls/hr IV TITRATE C[facility]; Protocol Last Admin: 02/27/20 22:12 Dose: 2 munits/min, 12 mls/hr Documented by: Lactated Ringer's (Ringers, Lactated) 1,000 mls @ 100 mls/hr IV ASDIRECTED [facility] Last Admin: 02/28/20 01:30 Dose: 100 mls/hr Documented by: Nalbuphine HCl (Nubain) 10 mg IVPUSH Q2H PRN PRN Reason: Pain Ondansetron HCl (Zofran) 4 mg IVPUSH Q4H PRN PRN Reason: Nausea/Vomiting Sodium Chloride (Saline Flush) 10 ml FLUSH ASDIRECTED PRN PRN Reason: Keep Vein Open - Interaction Infant Disposition, : [place] in Room with Family Infant Interaction: Holding Infant Feeding: Attempted ; Nursed Fair/Poor, Bottle Fed Infant Support Person: - Recovery Exam Fundal Tone: Firm Fundal Level: 2 Fingerbreadths Below Umbilicus Fundal Placement: Midline Lochia Amount: Scant Lochia Color: Rubra/Red Perineum Description: Intact, Minimal Bruising/Swelling Bladder Status: Voiding Urinary Elimination: Voided - Exam General: Alert, Oriented, Cooperative GI/Abdominal Exam: Soft, Non-Tender Extremities: Normal Inspection - Problem List & Annotations (1) Vaginal delivery SNOMED Code(s): 599905902 Code(s): O80 - ENCOUNTER FOR FULL-TERM UNCOMPLICATED DELIVERY Status: Acute Current Visit: Yes - Problem List Review Problem List Initiated/Reviewed/Updated: Yes - My Orders Last 24 Hours: My Active Orders 02/29/20 06:44 Ready for Discharge [RC] PER UNIT ROUTINE - Assessment Assessment:: PPD#1 - Plan Plan:: * Routine cares * Breast and bottle feeding * Discharge home today
--- NOTE | 2020-02-29 06:45 | PCM.DCSUM1 ---
Discharge Summary - Discharge Data Discharge Date: 02/29/20 Discharge Disposition: Home, Self-Care 01 Condition: Good - Referral to Home Health Primary Care Physician: Biju Cee MD - Patient Summary/Data Complications: None Consults: None Recommended Follow-up Testing/Procedures: Follow up in 2-3 weeks for check Hospital Course: 29 y/o who presented in early labor. Augmented. Underwent uncomplicated . See delivery note. did well and was discharged home on PPD#1 - Patient Instructions Diet: Regular Diet as Tolerated Activity: As Tolerated Activity, Other: Pelvic rest for 6 weeks Driving: May Drive Today Showering/Bathing: May Shower Showering/Bathing, Other: May Bathe Notify Provider of: Fever, Increased Pain, Swelling and Redness, Drainage, Nausea and/or Vomiting - Discharge Plan *PRESCRIPTION DRUG MONITORING PROGRAM REVIEWED*: No *COPY OF PRESCRIPTION DRUG MONITORING REPORT IN PATIENT TEJINDER: No Home Medications: Home Meds FLUoxetine HCl [Fluoxetine] 20 mg PO DAILY 03/03/19 [History] Vits #93/Iron Fum/FA [ Formula Tablet] 1 tab PO DAILY 02/16/20 [History] Docusate Sodium [Colace] 100 mg PO BID PRN cap 02/28/20 [Rx] Ibuprofen [Motrin] 600 mg PO Q4H PRN tablet 02/28/20 [Rx] Patient Handouts: Steps to Quit Smoking Referrals: Biju Cee MD [Primary Care Provider] - (2-3 weeks for check) - Discharge Summary/Plan Comment DC Time >30 min.: No - Patient Data Vitals - Most Recent: Last Vital Signs Temp 36.0 C L 02/29/20 04:28 Pulse 61 02/29/20 04:28 Resp 14 02/29/20 04:28 BP 107/70 02/29/20 04:28 Pulse Ox 96 02/29/20 04:28 Weight - Most Recent: 70.76 kg I&O - Last 24 hours: Intake & Output 02/28/20 02/28/20 02/29/20 14:59 22:59 06:59 Intake Total 300 Balance 300 Lab Results - Last 24 hrs: Laboratory Results - last 24 hr 02/27/20 Range/Units 19:30 RPR Non-reactive (NONREACTIVE) Med Orders - Current: Current Medications Acetaminophen (Tylenol) 650 mg PO Q4H PRN PRN Reason: mild pain or fever Benzocaine/Menthol (Dermoplast Pain Relief [place]) 0 gm TOP ASDIRECTED PRN PRN Reason: Perineal Comfort Measure Last Admin: 02/28/20 06:00 Dose: 1 can Documented by: Docusate Sodium (Colace) 100 mg PO BID PRN PRN Reason: Constipation Fluoxetine HCl (Prozac) 20 mg PO BEDTIME [facility] Last Admin: 02/28/20 20:53 Dose: Not Given Documented by: Ibuprofen (Motrin) 600 mg PO Q4H PRN PRN Reason: Mild pain or fever Last Admin: 02/28/20 19:39 Dose: 600 mg Documented by: Prenat Multivit/[place]/Iron/Folic Ac ( Plus Iron) 1 each PO DAILY [facility] Last Admin: 02/28/20 08:26 Dose: 1 each Documented by: Petrona Swanson ([facility]) 1 pad TOP ASDIRECTED PRN PRN Reason: Perineal Comfort Measure Last Admin: 02/28/20 06:00 Dose: 1 tub Documented by: Discontinued Medications Bupivacaine HCl (Sensorcaine-Mpf 0.25%) 10 ml .ROUTE .[facility] ONE Stop: 02/28/20 00:01 Diphenhydramine HCl (Benadryl) 25 mg IVPUSH Q6H PRN PRN Reason: pruritis Ephedrine Sulfate (Ephedrine Sulfate) 5 mg IVPUSH ASDIRECTED PRN PRN Reason: Hypotension Fentanyl (Sublimaze) 100 mcg EPIDUR Q3H PRN PRN Reason: Pain Last Admin: 02/28/20 00:59 Dose: 100 mcg Documented by: Fentanyl/Bupivacaine HCl (Fentanyl/Bupivacaine/Ns 2 Mcg-0.125% 100 Ml) 100 ml EPIDUR ASDIRECTED PRN PRN Reason: Pain Last Admin: 02/28/20 00:59 Dose: 100 ml Documented by: Fluoxetine HCl (Prozac) 20 mg PO DAILY [facility] Last Admin: 02/28/20 08:26 Dose: Not Given Documented by: Oxytocin/Lactated Ringer's (Pitocin In Lr 10 Units/1,000 Ml) 10 unit in 1,000 mls @ 12 mls/hr IV TITRATE [facility]; Protocol Last Admin: 02/27/20 22:12 Dose: 2 munits/min, 12 mls/hr Documented by: Lactated Ringer's (Ringers, Lactated) 1,000 mls @ 100 mls/hr IV ASDIRECTED [facility] Last Admin: 02/28/20 01:30 Dose: 100 mls/hr Documented by: Nalbuphine HCl (Nubain) 10 mg IVPUSH Q2H PRN PRN Reason: Pain Ondansetron HCl (Zofran) 4 mg IVPUSH Q4H PRN PRN Reason: Nausea/Vomiting Sodium Chloride (Saline Flush) 10 ml FLUSH ASDIRECTED PRN PRN Reason: Keep Vein Open
[2020-02-29 11:21] VITALS: BP 122/84; PULSE 64
[2020-02-29] MEDS: Prenatal Multivitamin with Calcium/Folic Acid/Iron Tab PO SCH (11:29)
== END 2020-02-29 11:00 | disposition home or self-care (01) | DRG 807 ==
LOC: JD.OB 03:23 → OBSVTOIN 02-28 03:23 → JD.OB 02-28 03:23
PROVIDERS: ADMIT Obstetrics & Gynecology; ATTEND Obstetrics & Gynecology
PROC: 10E0XZZ Delivery of Products of Conception, External Approach (ICD-10-PCS; principal; 2020-02-28)
PROC: 10907ZC Drainage of Amniotic Fluid, Therapeutic from Products of Conception, Via Natural or Artificial Opening (ICD-10-PCS; 2020-02-28)
PROC: 3E0R3BZ Introduction of Anesthetic Agent into Spinal Canal, Percutaneous Approach (ICD-10-PCS; 2020-02-28)
PROC: 00HU33Z Insertion of Infusion Device into Spinal Canal, Percutaneous Approach (ICD-10-PCS; 2020-02-28)
DX: O99.344 Other mental disorders complicating childbirth (principal); Z37.0 Single live birth; F41.9 Anxiety disorder, unspecified; O99.62 Diseases of the digestive system complicating childbirth; K21.9 Gastro-esophageal reflux disease without esophagitis; Z11.59 Encounter for screening for other viral diseases; O99.334 Smoking (tobacco) complicating childbirth; F17.210 Nicotine dependence, cigarettes, uncomplicated; Z3A.39 39 weeks gestation of pregnancy; Z91.040 Latex allergy status; Z79.899 Other long term (current) drug therapy; Z90.49 Acquired absence of other specified parts of digestive tract
CPT/HCPCS: 36415; 51702; 59025; 59409; 85025; 86592; A9270-GY; J2590; J3010; J3490; J7120; U0002

== ENCOUNTER 2020-03-04 18:43 | Emergency (ER) | payer OTHER ==
[2020-03-04 19:58] VITALS: BP 106/73
[2020-03-04] MEDS ORDERED: HYDROmorphone 0.5 MG/0.5 ML Syringe IVPUSH ONE (20:03)
[2020-03-04] MEDS ORDERED: Ketorolac 30 MG/ML SDV IVPUSH ONE (20:03)
[2020-03-04] MEDS ORDERED: Ondansetron 4 MG/2 ML SDV IVPUSH ONE (20:03)
--- NOTE | 2020-03-04 20:10 | EDM.PDOC ---
ED HPI GENERAL MEDICAL PROBLEM - General Chief Complaint: Headache Stated Complaint: HEADACHE Time Seen by Provider: 03/04/20 19:52 Source of Information: Reports: Patient History Limitations: Reports: No Limitations - History of Present Illness INITIAL COMMENTS - FREE TEXT/NARRATIVE: Patient is a 29-year-old female who presents to the emergency department with complaints of a right-sided headache. Onset of symptoms were mild last evening, however increased in intensity around 10:00 this morning. She describes it as a sharp stabbing pain in her right occipital region with throbbing radiation anteriorly. She does have light sensitivity as well as sensitivity to sound. She went to the chiropractor this afternoon but she had thought that could be out of place, however she had no relief after the adjustment. There is no correlation between the pain and position. Pain does not improve with lying flat or worsen upon standing. She denies any pain in her neck or pain with movement of her neck. She states she is had what she describes as 2 migraines in the past, but has no history of recurrent migraines. She has been using [id number] Tylenol and Motrin as needed for pain with little relief. She is 5 days normal vaginal delivery. States she had a healthy with no history of preeclampsia or eclampsia. Her blood pressures are normally in the 90s, however they checked her blood pressure at home and it showed in the 130 systolic which was concerning for her. She denies any nausea, vomiting, dizziness. 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 Right Headache Pain Score (Numeric/FACES): 7 - Related Data Allergies Allergy/AdvReac Type Severity Reaction Status Date / Time Latex, Natural Rubber Allergy Hives Verified 03/04/20 19:15 Home Meds: Home Meds FLUoxetine HCl [Fluoxetine] 20 mg PO DAILY 03/03/19 [History] Vits #93/Iron Fum/FA [ Formula Tablet] 1 tab PO DAILY 02/16/20 [History] Docusate Sodium [Colace] 100 mg PO BID PRN cap 02/28/20 [Rx] Ibuprofen [Motrin] 600 mg PO Q4H PRN tablet 02/28/20 [Rx] Past Medical History - Past Health History Medical/Surgical History: Denies Medical/Surgical History HEENT History: Reports: None Cardiovascular History: Reports: None Respiratory History: Reports: None Other Respiratory History: pt states she only uses inhaler in summer/fall. seasonal Gastrointestinal History: Reports: Colon Polyp, Gastritis, GERD Genitourinary History: Reports: None BEAUTY DIRECTOR History: Reports: , Spontaneous Other BEAUTY DIRECTOR History: at 39 weeks with first child, weight 7 lbs. 2 oz., female . Psychiatric History: Reports: Anxiety Endocrine/Metabolic History: Reports: None Hematologic History: Reports: None Oncologic (Cancer) History: Reports: None - Past Surgical History HEENT Surgical History: Reports: Oral Surgery GI Surgical History: Reports: Appendectomy, Cholecystectomy, Colonoscopy, EGD Female Surgical History: Reports: Other (See Below) Social & Family History - Family History Family Medical History: Noncontributory Cardiac: Reports: Hypertension Endocrine/Metabolic: Reports: Hypothyroidism - Tobacco Use Smoking Status *Q: Never Smoker - Caffeine Use Caffeine Use: Reports: Coffee, Soda - Living Situation & Occupation Living situation: Reports: , with Spouse, with Family (2 kids) Occupation: Employed ([employer]) ED ROS GENERAL - Review of Systems Review Of Systems: See Below Constitutional: Reports: No Symptoms. Denies: Fever, Chills, Weakness HEENT: Reports: No Symptoms. Denies: Ear Pain, Vertigo, Vision Change Respiratory: Reports: No Symptoms Cardiovascular: Reports: No Symptoms Endocrine: Reports: No Symptoms GI/Abdominal: Reports: No Symptoms. Denies: Nausea, Vomiting : Reports: Hematuria Musculoskeletal: Reports: No Symptoms Skin: Reports: No Symptoms Neurological: Reports: Headache Psychiatric: Reports: No Symptoms Hematologic/Lymphatic: Reports: No Symptoms Immunologic: Reports: No Symptoms - Physical Exam Exam: See Below Exam Limited By: No Limitations General Appearance: Alert, WD/WN, No Apparent Distress Respiratory/Chest: No Respiratory Distress, Lungs Clear, Normal Breath Sounds, No Accessory Muscle Use, Chest Non-Tender Cardiovascular: Normal Peripheral Pulses, Regular Rate, Rhythm, No Edema, No Gallop, No JVD, No Murmur, No Rub GI/Abdominal: Normal Bowel Sounds, Soft, Non-Tender, No Organomegaly, No Distention, No Abnormal Bruit, No Mass Neuro Exam (Abbreviated): Alert, Oriented, CN II-XII Intact, Normal Cognition, Normal Gait, Normal Reflexes, No Motor/Sensory Deficits Psychiatric: Normal Affect, Normal Mood Skin Exam: Warm, Dry, Intact, Normal Color, No Rash Course - Vital Signs Last Recorded V/S: Last Vital Signs Temp 97.7 F 03/04/20 19:11 Pulse Resp 18 03/04/20 19:11 BP 106/73 03/04/20 19:57 Pulse Ox 98 03/04/20 19:11 - Orders/Labs/Meds Orders: Active Orders 24 hr Category Date Time Status Sodium Chloride 0.9% [Normal Saline] 1,000 ml Med 03/04/20 20:15 Active IV ASDIRECTED Medication Orders Sodium Chloride (Normal Saline) 1,000 mls @ 999 mls/hr IV ASDIRECTED CORTES Last Admin: 03/04/20 20:18 Dose: 999 mls/hr Documented by: ROSANA Labs: Laboratory Tests 03/04/20 03/04/20 03/04/20 Range/Units 20:05 20:05 21:03 WBC 9.85 (3.98-10.04) K/mm3 RBC 4.00 (3.98-5.22) M/mm3 Hgb 10.5 L (11.2-15.7) gm/dl Hct 33.6 L (34.1-44.9) % MCV 84.0 (79.4-94.8) fl MCH 26.3 (25.6-32.2) pg MCHC 31.3 L (32.2-35.5) g/dl RDW Std Deviation 40.8 (36.4-46.3) fL Plt Count 277 D (182-369) K/mm3 MPV 11.4 (9.4-12.3) fl Neut % (Auto) 58.5 (34.0-71.1) % Lymph % (Auto) 30.4 (19.3-51.7) % [place] % (Auto) 7.8 (4.7-12.5) % Eos % (Auto) 2.6 (0.7-5.8) Baso % (Auto) 0.4 (0.1-1.2) % Neut # (Auto) 5.76 (1.56-6.13) K/mm3 Lymph # (Auto) 2.99 (1.18-3.74) K/mm3 [place] # (Auto) 0.77 H (0.24-0.36) K/mm3 Eos # (Auto) 0.26 (0.04-0.36) K/mm3 Baso # (Auto) 0.04 (0.01-0.08) K/mm3 Sodium 140 (136-145) mEq/L Potassium 3.5 (3.5-5.1) mEq/L Chloride 105 (98-107) mEq/L Carbon Dioxide 25 (21-32) mEq/L Anion Gap 13.5 (5-15) BUN 13 (7-18) mg/dL Creatinine 0.7 (0.55-1.02) mg/dL Est Cr Clr Drug Dosing TNP Estimated GFR (MDRD) > 60 (>60) mL/min BUN/Creatinine Ratio 18.6 H (14-18) Glucose 105 (74-106) mg/dL Calcium 8.8 (8.5-10.1) mg/dL Total Bilirubin 0.3 (0.2-1.0) mg/dL AST 29 (15-37) U/L ALT 46 (14-59) U/L Alkaline Phosphatase 91 (46-116) U/L C-Reactive Protein 1.0 (<1.0) mg/dL Total Protein 6.4 (6.4-8.2) g/dl Albumin 2.6 L (3.4-5.0) g/dl Globulin 3.8 gm/dL Albumin/Globulin Ratio 0.7 L (1-2) Urine Color Yellow (Yellow) Urine Appearance Clear (Clear) Urine pH 6.5 (5.0-8.0) Ur Specific [place] 1.025 (1.005-1.030) Urine Protein Negative (Negative) Urine Glucose (UA) Negative (Negative) Urine Ketones Negative (Negative) Urine Occult Blood 2+ H (Negative) Urine Nitrite Negative (Negative) Urine Bilirubin Negative (Negative) Urine Urobilinogen 0.2 (0.2-1.0) Ur Leukocyte Esterase Negative (Negative) Urine RBC 5-10 H (0-5) /hpf Urine WBC 0-5 (0-5) /hpf Ur Epithelial Cells 0-5 (0-5) /hpf Urine Bacteria Not seen (FEW) /hpf Urine Mucus Few (FEW) /hpf Meds: Medications Generic Name Dose Route Start Last Admin Trade Name Freq PRN Reason Stop Dose Admin Sodium Chloride 1,000 mls @ 999 mls/hr 03/04/20 20:15 03/04/20 20:18 Normal Saline IV 999 mls/hr ASDIRECTED CORTES Administration Discontinued Medications Generic Name Dose Route Start Last Admin Trade Name Nimesh PRN Reason Stop Dose Admin Hydromorphone HCl 0.5 mg 03/04/20 20:03 03/04/20 20:19 Dilaudid IVPUSH 03/04/20 20:04 0.5 mg ONETIME ONE Administration Ketorolac Tromethamine 30 mg 03/04/20 20:03 03/04/20 20:18 Toradol IVPUSH 03/04/20 20:04 30 mg ONETIME ONE Administration Ondansetron HCl 4 mg 03/04/20 20:03 03/04/20 20:18 Zofran IVPUSH 03/04/20 20:04 4 mg ONETIME ONE Administration - Re-Assessments/Exams Free Text/Narrative Re-Assessment/Exam: Patient is a 29-year-old female 5 days who presents to the ER with a 1 day history of right-sided headache. She has no history of eclampsia or preeclampsia. Headache is non-positional. She has had 2 similar episodes in the past of what she describes as migraine headaches. Blood pressure in triage was 106/73. I have ordered CBC, CMP, urinalysis, CT scan of the head. We will give her a liter of normal saline bolus, Toradol 30 mg IV, and Dilaudid 0.5 mg IV. 03/04/20 21:33 Patient's work-up is been grossly unremarkable. There is no protein in her urine. Blood pressure was found to be normal. CT scan of the head showed no acute intracranial abnormalities. She is feeling much better after the medications given. We will discharge her home. Discussed that would recommend that she pump and dump until noon tomorrow due to the Dilaudid she was given tonight. She is in agreement with this. Discharge instructions as documented. Departure - Departure Time of Disposition: 21:33 Disposition: Home, Self-Care 01 Condition: Good Clinical Impression: Headache Qualifiers: Headache type: unspecified Headache chronicity pattern: acute headache Intractability: not intractable Qualified Code(s): R51 - Headache - Discharge Information *PRESCRIPTION DRUG MONITORING PROGRAM REVIEWED*: No *COPY OF PRESCRIPTION DRUG MONITORING REPORT IN PATIENT TEJINDER: No Instructions: General Headache Without Cause, [id number] Referrals: PCP,None [Primary Care Provider] - Forms: ED Department Discharge Additional Instructions: You were seen in the emergency department for a headache for the last day. Work-up included blood work, urinalysis, and a CT scan of your head. Your blood work was found to be normal. There is no protein in your urine or elevation in your blood pressure to suggest preeclampsia. CT scan of your head was found to be normal. While in the ER you received a liter of IV fluids, Toradol and Dilaudid for pain. This did improve your symptoms. Recommend that you go home and rest. You may continue to use [id number] Tylenol or ibuprofen as needed for pain. Ensure that you are taking in an adequate amount of fluid. As we discussed, I would recommend that you pump and dump until noon tomorrow due to the narcotic pain medication received in the ER. If you should experience worsening of symptoms or any new symptoms of concern, please not hesitate to return to the emergency department. Sepsis Event Note (ED) - Evaluation Sepsis Screening Result: No Definite Risk - Focused Exam Vital Signs: Vital Signs Temp Resp BP Pulse Ox 03/04/20 19:57 106/73 03/04/20 19:11 97.7 F 18 98 - My Orders Last 24 Hours: My Active Orders 03/04/20 20:15 Sodium Chloride 0.9% [Normal Saline] 1,000 ml IV ASDIRECTED - Assessment/Plan Last 24 Hours: My Active Orders 03/04/20 20:15 Sodium Chloride 0.9% [Normal Saline] 1,000 ml IV ASDIRECTED
[2020-03-04] MEDS ORDERED: Sodium Chloride 0.9% 1,000 ML IV SCH (20:15)
--- NOTE | 2020-03-04 21:16 | CT ---
Head CT Technique: Multiple axial sections through the brain were obtained. Intravenous contrast was not utilized. Comparison: No prior intracranial imaging is available. Findings: Ventricles along with basal cisterns and sulci over the convexities are within normal limits for the patient's age. No abnormal parenchymal densities are seen. No evidence of intracranial hemorrhage. No midline shift or mass-effect is seen. Bone window settings shows the visualized mastoid sinuses and paranasal sinuses to show nothing acute. No acute calvarial finding is seen. Impression: 1. Nothing acute is appreciated on noncontrast head CT exam. Diagnostic code #1 This report was dictated in MDT
== END 2020-03-04 21:49 | disposition home or self-care (01) ==
LOC: JD.ED 18:43
DX: R51 Headache (principal); F41.9 Anxiety disorder, unspecified; Z79.899 Other long term (current) drug therapy; Z91.040 Latex allergy status
CPT/HCPCS: 36415; 70450; 80053; 81001; 85025; 86140; 96374; 96375; 99284; J1170; J1885; J2405; J7030

== ENCOUNTER 2022-10-18 20:20 | Emergency (ER) | payer OTHER ==
[2022-10-18 20:36] VITALS: BP 112/76; PULSE 104
== END 2022-10-18 22:57 | disposition home or self-care (01) ==
LOC: JD.ED 20:20
DX: M25.561 Pain in right knee (principal); Z91.040 Latex allergy status; W51.XXXA Accidental striking against or bumped into by another person, initial encounter; Y93.66 Activity, soccer
CPT/HCPCS: 73562-26-RT; 73562-RT; 99282; 99283

== ENCOUNTER 2022-11-09 06:55 | Day surgery (SDC) | payer OTHER ==
[~2022-11-09 06:55] MED LIST: Albuterol 0.083% 2.5 MG/3 ML Neb Soln NEB PRN; Lactated Ringers 1,000 ML IV SCH; Lidocaine 1%/Sod Bicarbonate in NS 8.4% 1 ML Syringe IDERM PRN; Sodium Chloride 0.9% 10 ML Syringe FLUSH PRN; Sodium Chloride 0.9% 10 ML Syringe FLUSH SCH
[2022-11-09] MEDS ORDERED: Dexamethasone 4 MG/ML 5 ML MDV ONE (06:58)
[2022-11-09] MEDS ORDERED: Propofol 200 MG/20 ML SDV ONE (06:58)
[2022-11-09] MEDS ORDERED: Lactated Ringers 1,000 ML ONE (06:58)
[2022-11-09] MEDS ORDERED: Ondansetron 4 MG/2 ML SDV ONE (06:58)
[2022-11-09] MEDS ORDERED: Midazolam 1 MG/ML 2 ML SDV ONE (06:58)
[2022-11-09] MEDS ORDERED: Ketorolac 30 MG/ML SDV ONE (06:58)
[2022-11-09] MEDS ORDERED: ceFAZolin 2 GM Vial ONE (06:58)
[2022-11-09] MEDS ORDERED: fentaNYL 100 MCG/2 ML SDV ONE (06:58)
[2022-11-09] MEDS ORDERED: Bupivacaine 0.25% 10 ML SDV ONE (07:09)
[2022-11-09] MEDS ORDERED: EPINEPHrine 1 MG/ML 30 ML MDV IRR SCH (07:30)
[2022-11-09] MEDS ORDERED: HYDROmorphone 0.5 MG/0.5 ML Syringe IVPUSH PRN (08:21)
[2022-11-09] MEDS ORDERED: ePHEDrine 50 MG/ML SDV IVPUSH PRN (08:21)
[2022-11-09] MEDS ORDERED: Phenylephrine 1% 10 MG/ML SDV IVPUSH PRN (08:21)
[2022-11-09] MEDS ORDERED: Midazolam 1 MG/ML 2 ML SDV IVPUSH PRN (08:21)
[2022-11-09] MEDS ORDERED: diphenhydrAMINE 50 MG/ML SDV IVPUSH PRN (08:21)
[2022-11-09] MEDS ORDERED: fentaNYL 100 MCG/2 ML SDV IVPUSH PRN (08:21)
[2022-11-09] MEDS ORDERED: Albuterol 0.083% 2.5 MG/3 ML Neb Soln NEB PRN (08:21)
[2022-11-09] MEDS ORDERED: Ondansetron 4 MG/2 ML SDV IVPUSH PRN (08:21)
[2022-11-09] MEDS ORDERED: ePHEDrine 50 MG/ML SDV ONE (08:50)
[2022-11-09] MEDS ORDERED: Acetaminophen/HYDROcodone 325-5 MG Tab PO SCH (09:24)
[2022-11-09 15:04] VITALS: PULSE 78
[2022-11-09 15:05] VITALS: BP 114/75
== END 2022-11-09 11:15 | disposition home or self-care (01) ==
LOC: JD.SDS 06:55
PROVIDERS: ATTEND Orthopaedic Surgery
DX: S83.241A Other tear of medial meniscus, current injury, right knee, initial encounter (principal); K21.9 Gastro-esophageal reflux disease without esophagitis; F41.9 Anxiety disorder, unspecified; F17.210 Nicotine dependence, cigarettes, uncomplicated; Z91.040 Latex allergy status; Z79.899 Other long term (current) drug therapy; X58.XXXA Exposure to other specified factors, initial encounter; Y93.66 Activity, soccer
CPT/HCPCS: 29881; 36415; 84703; A9270; J0171; J0690; J1100; J1885; J2250; J2405; J2704; J3010; J3490; J7120; 01400

== ENCOUNTER 2023-03-13 16:52 | Emergency (ER) | payer OTHER ==
[2023-03-13 17:57] LABS: BASOPHILS ABSOLUTE AUTO 0.04 K/mm3 (0.01-0.08); BASOPHILS PERCENT AUTO 0.7 % (0.1-1.2); EOSINOPHILS ABSOLUTE AUTO 0.16 K/mm3 (0.04-0.36); EOSINOPHILS PERCENT AUTO 2.6 (0.7-5.8); HEMATOCRIT 37.6 % (34.1-44.9); HEMOGLOBIN 12.4 gm/dl (11.2-15.7); LYMPHOCYTES ABSOLUTE AUTO 2.21 K/mm3 (1.18-3.74); LYMPHOCYTES PERCENT AUTO 36.1 % (19.3-51.7); MEAN CORPUSCULAR HEMOGLOBIN 27.9 pg (25.6-32.2); MEAN CORPUSCULAR VOLUME 84.5 fl (79.4-94.8); MONOCYTES ABSOLUTE AUTO 0.57 K/mm3 (0.24-0.36); MONOCYTES PERCENT AUTO 9.3 % (4.7-12.5); NEUTROPHILS ABSOLUTE AUTO 3.15 K/mm3 (1.56-6.13); NEUTROPHILS PERCENT AUTO 51.3 % (34.0-71.1); PLATELET COUNT,PLT 256 K/mm3 (182-369); RED BLOOD CELL COUNT 4.45 M/mm3 (3.98-5.22); WHITE BLOOD CELL COUNT,WBC 6.13 K/mm3 (3.98-10.04)
[2023-03-13 18:21] LABS: A/G RATIO 1.3 (1-2); ALANINE AMINOTRANSFERASE,ALT 21 U/L (14-59); ALBUMIN 3.8 g/dl (3.4-5.0); ALKALINE PHOSPHATASE 40 U/L (46-116); ANION GAP 13.3 (5-15); ASPARTATE AMNIOTRANSFERASE,AST 15 U/L (15-37); BLOOD UREA NITROGEN,BUN 10 mg/dL (7-18); BUN/CREATININE RATIO 14.3 (14-18); C-REACTIVE PROTEIN <0.2 mg/dL (<1.0); CALCIUM 8.3 mg/dL (8.5-10.1); CARBON DIOXIDE,CO2 23 mEq/L (21-32); CHLORIDE,CL 102 mEq/L (98-107); CREATININE 0.7 mg/dL (0.55-1.02); EST CRCL DRUG DOSING (CG) 97.79 mL/min; ESTIMATED GFR 116 mL/min (>60); GLUCOSE RANDOM 102 mg/dL (70-99); POTASSIUM,K 3.3 mEq/L (3.5-5.1); PROTEIN TOTAL,TP 6.8 g/dl (6.4-8.2); SODIUM,NA 135 mEq/L (136-145)
[2023-03-13 18:24] LABS: TROPONIN I HIGH SENSITIVITY < 4 pg/mL (<=51)
[2023-03-13] MEDS ORDERED: Ketorolac 30 MG/ML SDV IVPUSH ONE (18:28)
[2023-03-13] MEDS ORDERED: Ketorolac 60 MG/2 ML SDV IM ONE (19:01)
[2023-03-13 21:07] VITALS: BP 100/68; PULSE 71
== END 2023-03-13 20:53 | disposition home or self-care (01) ==
LOC: JD.ED 16:52
DX: R07.89 Other chest pain (principal); Z86.16 Personal history of COVID-19; Z91.040 Latex allergy status
CPT/HCPCS: 36415; 71046; 80053; 84484; 85025; 85379; 86140; 93005; 96372; 99285; J1885; 93010; 99284